=== PATIENT | male | born 1945 | race Caucasian/White ===

== ENCOUNTER 2017-06-23 09:04 | Inpatient (IN) | payer OTHER, SELFPAY ==
[~2017-06-23] VITALS: Ht 170.2 cm; Wt 84.0 kg
[~2017-06-23 09:04] MED LIST: ACET325 PO; ALBU.083IS INH; ALBU3IS INH; ALBU90OI6 INH; ALBU90OI61 INH; ALBUIS INH; ASCO500 PO; ATEN50 PO; AZIT250 PO; Altoprev40 MG PO; B Complex #11 EACH PO; Brovana15 MCG/2 M; Brovana15 MCG/2 M INH; CALC1.25T PO; CALCAVITD PO; CENTRUM SILVER1 EAC2 PO; CENTRUM ULTRA1 EAC1 PO; CITA10S PO; CITA20 PO; CLON.5 PO; CLON1 PO; CODGUAEL PO; Coq-10100 MG PO; DELTASONE20 MG PO; DILT60 PO; DOCU100 PO; DULERA 200 MCG/13 GM INH; ERGO50000 PO; FLUSAL2505 IH; FLUSAL2505 INH; FLUSAL5005 INH; FURO20 PO; Flonase 0.05% N16 GM; GUAI600T33 PO; HYLAND LEG CRAMPS; IBUP800 PO; KRILL OIL 1,001 EAC1 PO; KRILL OIL500 MG PO; LEVFLO500 PO; LEVO750 PO; LISHYD2025 PO; LISI20 PO; LORA10 PO; LOVA40 PO; METF500 PO; OMEP20ER PO; OXYB5 PO; PANT40 PO; POTCHL10ER PO; PRED10 PO; PRED5 PO; Penlac6.6 ML TOP; Perforomis20 MCG/2 M INH; Prednisone10 MG PO; Prozac20 MG PO; QC CALCIUM 6001 EACH PO; QVAR7.3 G1 INH; SILD50TA PO; SODCHL.65S; SPIRIVA; TAMS.4ER PO; THEO300ERA PO; THEO300ERC PO; TIOT18 IH; TIOT18 INH; TOCO400 PO; TRAM50 PO; VITAMIN B; VITAMIN D-32000 UNIT PO; Ventolin Soln3 ML INH; Vitamin B Comple1 EA PO; Vitamin D2000 UNIT PO; ZESTORETIC 20-1 EAC1 PO; ZINC15 PO; Zinc PO
[2017-06-23 09:25] LABS: BASOPHILS ABSOLUTE AUTO 0.06 K/mm3 (0.00-0.23); BASOPHILS PERCENT AUTO 0 % (0-2); EOSINOPHILS ABSOLUTE AUTO 0.29 K/mm3 (0.00-0.68); EOSINOPHILS PERCENT AUTO 2 % (0-6); Hemoglobin 13.3 g/dL (13.5-17.5); IMMATURE GRAN ABSOLUTE AUTO 0.08 K/mm3 (0.00-0.10); IMMATURE GRAN PERCENT AUTO 1 % (0-1); LYMPHOCYTES ABSOLUTE AUTO 1.49 K/mm3 (0.84-5.20); LYMPHOCYTES PERCENT AUTO 9 % (21-46); MONOCYTES ABSOLUTE AUTO 1.33 K/mm3 (0.16-1.47); MONOCYTES PERCENT AUTO 8 % (4-13); Mean Corpuscular HGB 30.1 pg (26.0-34.0); Mean Corpuscular HGB Conc 30.9 g/dL (31.5-36.5); Mean Corpuscular Volume 97 fL (80-100); Mean Platelet Volume 9.8 fL (9.1-12.4); NEUTROPHILS PERCENT AUTO 80 % (41-73); Platelet Count 263 K/mm3 (150-400); RDW Coefficient Variation 12.6 % (11.7-14.2); RDW Standard Deviation 45.1 fL (35.1-46.3); Red Blood Cell Count 4.42 M/mm3 (4.30-5.90); White Blood Cell Count 16.05 K/mm3 (4.00-11.30)
[2017-06-23 09:41] LABS: PCO2 Arterial 55.5 mmHg (35-45); PO2 Arterial 87.5 mmHg (80-100); pH Blood Arterial 7.35 (7.35-7.45)
[2017-06-23 09:45] LABS: Alanine Aminotransfer (ALT/SGP 18 U/L (12-78); Albumin, Blood 3.1 g/dL (3.4-5.0); Albumin/Globulin Ratio 0.8 (0.8-1.8); Alk Phos 86 U/L (50-136); Anion Gap 6 mmol/L (6-16); Aspartate Aminotrans (AST/SGOT 15 U/L (12-37); Bilirubin, Total 0.5 mg/dL (0.1-1.0); Blood Urea Nitrogen 22 mg/dL (8-24); Bun/Creatinine Ratio 24.9 (12.0-20.0); CO2, Blood 29 mmol/L (21-32); Calcium, Blood 9.8 mg/dL (8.5-10.1); Chloride, Blood 103 mmol/L (98-108); Creatinine, Blood 0.89 mg/dL (0.60-1.20); Glomerular Filtration Rate >60 (60-); Glucose, Blood 164 mg/dL (70-99); Potassium, Blood 5.1 mmol/L (3.5-5.5); Sodium, Blood 138 mmol/L (136-145); Total Protein, Blood 7.1 g/dL (6.4-8.2); Troponin I <0.015 ng/mL (0.000-0.040)
[2017-06-23 10:24] LABS: Influenza A Negative (NEGATIVE); Influenza B Negative (NEGATIVE)
[2017-06-23 10:28] LABS: BASOPHILS ABSOLUTE AUTO 0.05 K/mm3 (0.00-0.23); BASOPHILS PERCENT AUTO 0 % (0-2); EOSINOPHILS ABSOLUTE AUTO 0.11 K/mm3 (0.00-0.68); EOSINOPHILS PERCENT AUTO 1 % (0-6); Hematocrit 39.6 % (37.0-53.0); Hemoglobin 12.4 g/dL (13.5-17.5); IMMATURE GRAN ABSOLUTE AUTO 0.08 K/mm3 (0.00-0.10); IMMATURE GRAN PERCENT AUTO 1 % (0-1); LYMPHOCYTES ABSOLUTE AUTO 0.56 K/mm3 (0.84-5.20); LYMPHOCYTES PERCENT AUTO 4 % (21-46); MONOCYTES ABSOLUTE AUTO 0.75 K/mm3 (0.16-1.47); MONOCYTES PERCENT AUTO 5 % (4-13); Mean Corpuscular HGB Conc 31.3 g/dL (31.5-36.5); Mean Corpuscular Volume 96 fL (80-100); Mean Platelet Volume 9.8 fL (9.1-12.4); NEUTROPHILS ABSOLUTE AUTO 13.99 K/mm3 (1.96-9.15); NEUTROPHILS PERCENT AUTO 90 % (41-73); Platelet Count 260 K/mm3 (150-400); RDW Coefficient Variation 12.7 % (11.7-14.2); RDW Standard Deviation 45.1 fL (35.1-46.3); Red Blood Cell Count 4.13 M/mm3 (4.30-5.90); White Blood Cell Count 15.54 K/mm3 (4.00-11.30)
[2017-06-23] MEDS ORDERED: OXYB5 PO (10:30)
[2017-06-23 10:39] LABS: Alanine Aminotransfer (ALT/SGP 16 U/L (12-78); Albumin/Globulin Ratio 0.8 (0.8-1.8); Alk Phos 81 U/L (50-136); Anion Gap 5 mmol/L (6-16); Aspartate Aminotrans (AST/SGOT 14 U/L (12-37); Bilirubin, Total 0.5 mg/dL (0.1-1.0); Blood Urea Nitrogen 23 mg/dL (8-24); Bun/Creatinine Ratio 26.2 (12.0-20.0); CO2, Blood 31 mmol/L (21-32); Calcium, Blood 9.5 mg/dL (8.5-10.1); Chloride, Blood 103 mmol/L (98-108); Creatinine, Blood 0.88 mg/dL (0.60-1.20); Globulin, Blood 3.7 g/dL (2.2-4.0); Glomerular Filtration Rate >60 (60-); Glucose, Blood 163 mg/dL (70-99); Potassium, Blood 4.7 mmol/L (3.5-5.5); Sodium, Blood 139 mmol/L (136-145); Total Protein, Blood 6.7 g/dL (6.4-8.2)
[2017-06-23 10:43] LABS: International Normalized Ratio 1.04; Prothrombin Time Results 10.8 Sec (9.7-11.5)
[2017-06-23 14:01] LABS: Source, Urine Clean Catch
[2017-06-23 14:04] LABS: Bilirubin, Urine Neg (Neg); Blood, Urine Neg (Neg); Glucose Qualitative, Urine Neg (Neg); Ketones, Urine Neg (Neg); Leukocyte Esterase, Urine Neg (Neg); Nitrite, Urine Neg (Neg); Protein, Urine 2+ (Neg); Urobilinogen, Urine NORM (Normal)
[2017-06-23 14:39] LABS: Appearance, Urine Clear (Clear); Color, Urine Yellow (P-Yellow)
[2017-06-23 14:47] LABS: White Blood Cells, Urine 0-2 /hpf (0-5)
[2017-06-23 14:48] LABS: Bacteria Rare /hpf; Red Blood Cells, Urine 0-2 /hpf (0-2); Squamous Epithelial Cells Rare /hpf (Few)
[2017-06-24 04:02] LABS: BASOPHILS ABSOLUTE AUTO 0.02 K/mm3 (0.00-0.23); BASOPHILS PERCENT AUTO 0 % (0-2); EOSINOPHILS PERCENT AUTO 0 % (0-6); Hemoglobin 11.6 g/dL (13.5-17.5); IMMATURE GRAN ABSOLUTE AUTO 0.12 K/mm3 (0.00-0.10); IMMATURE GRAN PERCENT AUTO 1 % (0-1); LYMPHOCYTES ABSOLUTE AUTO 0.59 K/mm3 (0.84-5.20); LYMPHOCYTES PERCENT AUTO 3 % (21-46); MONOCYTES ABSOLUTE AUTO 0.33 K/mm3 (0.16-1.47); MONOCYTES PERCENT AUTO 2 % (4-13); Mean Corpuscular HGB 30.4 pg (26.0-34.0); Mean Corpuscular HGB Conc 31.4 g/dL (31.5-36.5); Mean Corpuscular Volume 97 fL (80-100); Mean Platelet Volume 10.1 fL (9.1-12.4); NEUTROPHILS ABSOLUTE AUTO 16.64 K/mm3 (1.96-9.15); NEUTROPHILS PERCENT AUTO 94 % (41-73); Platelet Count 268 K/mm3 (150-400); RDW Coefficient Variation 12.9 % (11.7-14.2); RDW Standard Deviation 45.5 fL (35.1-46.3); Red Blood Cell Count 3.82 M/mm3 (4.30-5.90)
[2017-06-24 04:26] LABS: Anion Gap 6 mmol/L (6-16); Blood Urea Nitrogen 28 mg/dL (8-24); Bun/Creatinine Ratio 29.8 (12.0-20.0); CO2, Blood 27 mmol/L (21-32); Calcium, Blood 8.8 mg/dL (8.5-10.1); Chloride, Blood 107 mmol/L (98-108); Creatinine, Blood 0.94 mg/dL (0.60-1.20); Glomerular Filtration Rate >60 (60-); Glucose, Blood 161 mg/dL (70-99); Potassium, Blood 4.4 mmol/L (3.5-5.5); Sodium, Blood 140 mmol/L (136-145)
[2017-06-25 05:11] LABS: BASOPHILS ABSOLUTE AUTO 0.01 K/mm3 (0.00-0.23); BASOPHILS PERCENT AUTO 0 % (0-2); EOSINOPHILS PERCENT AUTO 0 % (0-6); Hematocrit 33.3 % (37.0-53.0); Hemoglobin 10.4 g/dL (13.5-17.5); IMMATURE GRAN ABSOLUTE AUTO 0.12 K/mm3 (0.00-0.10); IMMATURE GRAN PERCENT AUTO 1 % (0-1); LYMPHOCYTES ABSOLUTE AUTO 0.68 K/mm3 (0.84-5.20); LYMPHOCYTES PERCENT AUTO 4 % (21-46); MONOCYTES PERCENT AUTO 3 % (4-13); Mean Corpuscular HGB 29.7 pg (26.0-34.0); Mean Corpuscular HGB Conc 31.2 g/dL (31.5-36.5); Mean Corpuscular Volume 95 fL (80-100); Mean Platelet Volume 9.8 fL (9.1-12.4); NEUTROPHILS ABSOLUTE AUTO 17.82 K/mm3 (1.96-9.15); NEUTROPHILS PERCENT AUTO 93 % (41-73); Platelet Count 295 K/mm3 (150-400); RDW Coefficient Variation 12.8 % (11.7-14.2); RDW Standard Deviation 44.2 fL (35.1-46.3); White Blood Cell Count 19.13 K/mm3 (4.00-11.30)
[2017-06-25] MEDS ORDERED: Advair Hfa 230-12 GM (13:50)
[2017-06-25] MEDS ORDERED: ALBU3IS INH (13:52)
[2017-06-25] MEDS ORDERED: LEVO750 PO (13:54)
[2017-06-25] MEDS ORDERED: CEFP200 PO (13:55)
[2017-06-25] MEDS ORDERED: CLARITIN10 MG PO (13:57)
[2017-06-25] MEDS ORDERED: Ciclopirox15 GM TOP (13:58)
== END 2017-06-25 15:23 | disposition home or self-care (01) | DRG 871 ==
LOC: ER 09:04 → PCU 10:36
PROVIDERS: Emergency Medicine; Family Medicine
DX: A41.9 Sepsis, unspecified organism (principal); J96.21 Acute and chronic respiratory failure with hypoxia; J18.9 Pneumonia, unspecified organism; J96.22 Acute and chronic respiratory failure with hypercapnia; J44.0 Chronic obstructive pulmonary disease with (acute) lower respiratory infection; E11.9 Type 2 diabetes mellitus without complications; R65.20 Severe sepsis without septic shock; I10 Essential (primary) hypertension; E78.00 Pure hypercholesterolemia, unspecified; M85.80 Other specified disorders of bone density and structure, unspecified site; F32.9 Major depressive disorder, single episode, unspecified; G47.00 Insomnia, unspecified; E66.9 Obesity, unspecified; Z68.31 Body mass index [BMI] 31.0-31.9, adult; Z99.81 Dependence on supplemental oxygen; Z88.0 Allergy status to penicillin; Z87.891 Personal history of nicotine dependence; Z85.828 Personal history of other malignant neoplasm of skin; Z79.84 Long term (current) use of oral hypoglycemic drugs; Z79.51 Long term (current) use of inhaled steroids; Z79.52 Long term (current) use of systemic steroids; Z79.899 Other long term (current) drug therapy
CPT/HCPCS: 36415; 36600; 71045; 71046; 80048; 80053; 81001; 82803; 82947; 83036; 83605; 83880; 84145; 84484; 85025; 85610; 85730; 87040; 87804; 93005; 93010; 94640; 94644; 94660; 94762; 96361; 96365; 96375; 99285; J0696; J1650; J1956; J2060; J2930; J3370; J7030; J7050; J7605

== ENCOUNTER 2017-07-08 21:06 | Inpatient (IN) | payer OTHER ==
[~2017-07-08] VITALS: Ht 170.2 cm; Wt 78.2 kg
[~2017-07-08 21:06] MED LIST changes: +Advair Hfa 230-12 GM; +CEFP200 PO; +CLARITIN10 MG PO; +Ciclopirox15 GM TOP
[2017-07-08 21:23] LABS: PO2 Arterial 133 mmHg (80-100)
[2017-07-08 21:24] LABS: PCO2 Arterial 88.7 mmHg (35-45)
[2017-07-08 21:25] LABS: Calcium, Ionized (POC) 1.33 mmol/L (1.10-1.46); Chloride (POC) 97 mmol/L (98-108); Creatinine (POC) 1.7 mg/dL (0.8-1.3); Glucose (ISTAT POC) 135 mg/dL (70-99); Potassium (POC) 4.9 mmol/L (3.5-5.5); Sodium (POC) 136 mmol/L (135-148); Total CO2 (POC) 36 mmol/L (21-32)
[2017-07-08 21:33] LABS: BASOPHILS ABSOLUTE AUTO 0.02 K/mm3 (0.00-0.23); BASOPHILS PERCENT AUTO 0 % (0-2); EOSINOPHILS ABSOLUTE AUTO 0.19 K/mm3 (0.00-0.68); EOSINOPHILS PERCENT AUTO 2 % (0-6); Hematocrit 44.4 % (37.0-53.0); Hemoglobin 13.4 g/dL (13.5-17.5); IMMATURE GRAN ABSOLUTE AUTO 0.06 K/mm3 (0.00-0.10); IMMATURE GRAN PERCENT AUTO 1 % (0-1); LYMPHOCYTES ABSOLUTE AUTO 0.81 K/mm3 (0.84-5.20); LYMPHOCYTES PERCENT AUTO 8 % (21-46); MONOCYTES ABSOLUTE AUTO 0.94 K/mm3 (0.16-1.47); MONOCYTES PERCENT AUTO 9 % (4-13); Mean Corpuscular HGB 29.3 pg (26.0-34.0); Mean Corpuscular HGB Conc 30.2 g/dL (31.5-36.5); Mean Corpuscular Volume 97 fL (80-100); Mean Platelet Volume 9.8 fL (9.1-12.4); NEUTROPHILS ABSOLUTE AUTO 8.62 K/mm3 (1.96-9.15); NEUTROPHILS PERCENT AUTO 81 % (41-73); Platelet Count 292 K/mm3 (150-400); RDW Coefficient Variation 13.9 % (11.7-14.2); RDW Standard Deviation 49.4 fL (35.1-46.3); Red Blood Cell Count 4.57 M/mm3 (4.30-5.90); White Blood Cell Count 10.64 K/mm3 (4.00-11.30)
[2017-07-08 21:44] LABS: Albumin, Blood 2.6 g/dL (3.4-5.0); Albumin/Globulin Ratio 0.6 (0.8-1.8); Bilirubin, Total 0.3 mg/dL (0.1-1.0); Bun/Creatinine Ratio 34.9 (12.0-20.0); Calcium, Blood 10.3 mg/dL (8.5-10.1); Creatinine, Blood 1.52 mg/dL (0.60-1.20); Globulin, Blood 4.3 g/dL (2.2-4.0); Total Protein, Blood 6.9 g/dL (6.4-8.2)
[2017-07-08 21:52] LABS: Troponin I 0.496 ng/mL (0.000-0.040)
[2017-07-08 22:28] LABS: pH Blood Venous 7.24 (7.34-7.37)
[2017-07-08 22:29] LABS: Base Excess Venous 8.1 mmol/L; Bicarbonate Venous 28.6 mmol/L (24.0-30.0); PCO2 Venous 83.6 mmHg (38-42); PO2 Venous 37.9 mmHg (38-42)
[2017-07-09] MEDS ORDERED: PRED5 PO (01:24)
[2017-07-09] MEDS ORDERED: IBUP800 PO (01:26)
[2017-07-09 01:54] LABS: Source, Urine Catheter
[2017-07-09 01:56] LABS: Bilirubin, Urine Neg (Neg); Blood, Urine Neg (Neg); Glucose Qualitative, Urine Neg (Neg); Ketones, Urine Neg (Neg); Leukocyte Esterase, Urine Neg (Neg); Nitrite, Urine Neg (Neg); Protein, Urine 1+ (Neg); Specific Gravity, Urine 1.015 (1.003-1.022); Urobilinogen, Urine NORM (Normal)
[2017-07-09 01:59] LABS: Appearance, Urine Clear (Clear); Color, Urine Yellow (P-Yellow)
[2017-07-09 03:44] LABS: Influenza A Negative (NEGATIVE); Influenza B Negative (NEGATIVE)
[2017-07-09 03:58] LABS: BASOPHILS ABSOLUTE AUTO 0.02 K/mm3 (0.00-0.23); BASOPHILS PERCENT AUTO 0 % (0-2); EOSINOPHILS ABSOLUTE AUTO 0.02 K/mm3 (0.00-0.68); EOSINOPHILS PERCENT AUTO 0 % (0-6); Hematocrit 39.8 % (37.0-53.0); Hemoglobin 11.9 g/dL (13.5-17.5); IMMATURE GRAN ABSOLUTE AUTO 0.05 K/mm3 (0.00-0.10); IMMATURE GRAN PERCENT AUTO 1 % (0-1); LYMPHOCYTES PERCENT AUTO 2 % (21-46); MONOCYTES ABSOLUTE AUTO 0.11 K/mm3 (0.16-1.47); MONOCYTES PERCENT AUTO 1 % (4-13); Mean Corpuscular HGB 29.3 pg (26.0-34.0); Mean Corpuscular HGB Conc 29.9 g/dL (31.5-36.5); Mean Corpuscular Volume 98 fL (80-100); Mean Platelet Volume 9.5 fL (9.1-12.4); NEUTROPHILS ABSOLUTE AUTO 8.55 K/mm3 (1.96-9.15); NEUTROPHILS PERCENT AUTO 96 % (41-73); Platelet Count 252 K/mm3 (150-400); RDW Standard Deviation 50.2 fL (35.1-46.3); Red Blood Cell Count 4.06 M/mm3 (4.30-5.90); White Blood Cell Count 8.95 K/mm3 (4.00-11.30)
[2017-07-09 04:21] LABS: Anion Gap 5 mmol/L (6-16); Blood Urea Nitrogen 50 mg/dL (8-24); Bun/Creatinine Ratio 40.3 (12.0-20.0); CO2, Blood 32 mmol/L (21-32); Calcium, Blood 10.4 mg/dL (8.5-10.1); Chloride, Blood 99 mmol/L (98-108); Creatinine, Blood 1.24 mg/dL (0.60-1.20); Glomerular Filtration Rate >60 (60-); Glucose, Blood 150 mg/dL (70-99); Potassium, Blood 5.5 mmol/L (3.5-5.5); Sodium, Blood 136 mmol/L (136-145)
[2017-07-09 04:38] LABS: Troponin I 0.476 ng/mL (0.000-0.040)
[2017-07-09 05:33] LABS: PO2 Arterial 81.6 mmHg (80-100)
[2017-07-09 05:34] LABS: PCO2 Arterial 73.6 mmHg (35-45); pH Blood Arterial 7.27 (7.35-7.45)
[2017-07-09 09:23] LABS: PO2 Arterial 70.6 mmHg (80-100)
[2017-07-09 09:24] LABS: PCO2 Arterial 71.1 mmHg (35-45); pH Blood Arterial 7.29 (7.35-7.45)
[2017-07-10 05:16] LABS: BASOPHILS ABSOLUTE AUTO 0.01 K/mm3 (0.00-0.23); BASOPHILS PERCENT AUTO 0 % (0-2); EOSINOPHILS PERCENT AUTO 0 % (0-6); Hematocrit 34.8 % (37.0-53.0); Hemoglobin 10.5 g/dL (13.5-17.5); IMMATURE GRAN ABSOLUTE AUTO 0.04 K/mm3 (0.00-0.10); IMMATURE GRAN PERCENT AUTO 1 % (0-1); LYMPHOCYTES ABSOLUTE AUTO 0.35 K/mm3 (0.84-5.20); LYMPHOCYTES PERCENT AUTO 4 % (21-46); MONOCYTES ABSOLUTE AUTO 0.36 K/mm3 (0.16-1.47); MONOCYTES PERCENT AUTO 4 % (4-13); Mean Corpuscular HGB 28.8 pg (26.0-34.0); Mean Corpuscular HGB Conc 30.2 g/dL (31.5-36.5); Mean Corpuscular Volume 96 fL (80-100); Mean Platelet Volume 9.8 fL (9.1-12.4); NEUTROPHILS ABSOLUTE AUTO 8.12 K/mm3 (1.96-9.15); NEUTROPHILS PERCENT AUTO 91 % (41-73); Platelet Count 264 K/mm3 (150-400); RDW Coefficient Variation 13.7 % (11.7-14.2); RDW Standard Deviation 48.1 fL (35.1-46.3); Red Blood Cell Count 3.64 M/mm3 (4.30-5.90); White Blood Cell Count 8.88 K/mm3 (4.00-11.30)
[2017-07-10 05:29] LABS: Anion Gap 3 mmol/L (6-16); Blood Urea Nitrogen 46 mg/dL (8-24); Bun/Creatinine Ratio 46.2 (12.0-20.0); CO2, Blood 34 mmol/L (21-32); Calcium, Blood 10.3 mg/dL (8.5-10.1); Chloride, Blood 102 mmol/L (98-108); Glomerular Filtration Rate >60 (60-); Glucose, Blood 146 mg/dL (70-99); Magnesium, Blood 1.8 mg/dL (1.6-2.4); Phosphorus, Blood 2.6 mg/dL (2.5-4.9); Potassium, Blood 5.2 mmol/L (3.5-5.5); Sodium, Blood 139 mmol/L (136-145)
[2017-07-10 05:54] LABS: PCO2 Arterial 58.3 mmHg (35-45); PO2 Arterial 63.3 mmHg (80-100); pH Blood Arterial 7.42 (7.35-7.45)
[2017-07-11 04:39] LABS: BASOPHILS ABSOLUTE AUTO 0.01 K/mm3 (0.00-0.23); BASOPHILS PERCENT AUTO 0 % (0-2); EOSINOPHILS PERCENT AUTO 0 % (0-6); Hematocrit 35.8 % (37.0-53.0); Hemoglobin 10.9 g/dL (13.5-17.5); IMMATURE GRAN ABSOLUTE AUTO 0.06 K/mm3 (0.00-0.10); IMMATURE GRAN PERCENT AUTO 1 % (0-1); LYMPHOCYTES ABSOLUTE AUTO 0.46 K/mm3 (0.84-5.20); LYMPHOCYTES PERCENT AUTO 4 % (21-46); MONOCYTES ABSOLUTE AUTO 0.45 K/mm3 (0.16-1.47); MONOCYTES PERCENT AUTO 4 % (4-13); Mean Corpuscular HGB 29.1 pg (26.0-34.0); Mean Corpuscular HGB Conc 30.4 g/dL (31.5-36.5); Mean Corpuscular Volume 96 fL (80-100); Mean Platelet Volume 9.5 fL (9.1-12.4); NEUTROPHILS ABSOLUTE AUTO 11.12 K/mm3 (1.96-9.15); NEUTROPHILS PERCENT AUTO 92 % (41-73); Platelet Count 262 K/mm3 (150-400); RDW Coefficient Variation 13.8 % (11.7-14.2); RDW Standard Deviation 48.1 fL (35.1-46.3); Red Blood Cell Count 3.75 M/mm3 (4.30-5.90)
[2017-07-11 04:40] LABS: PCO2 Arterial 61.5 mmHg (35-45); PO2 Arterial 74.8 mmHg (80-100); pH Blood Arterial 7.41 (7.35-7.45)
[2017-07-11 05:03] LABS: Anion Gap 3 mmol/L (6-16); Blood Urea Nitrogen 41 mg/dL (8-24); Bun/Creatinine Ratio 45.2 (12.0-20.0); CO2, Blood 35 mmol/L (21-32); Calcium, Blood 10.3 mg/dL (8.5-10.1); Chloride, Blood 100 mmol/L (98-108); Creatinine, Blood 0.91 mg/dL (0.60-1.20); Glomerular Filtration Rate >60 (60-); Glucose, Blood 149 mg/dL (70-99); Potassium, Blood 4.9 mmol/L (3.5-5.5); Sodium, Blood 138 mmol/L (136-145)
[2017-07-11 10:54] LABS: Vancomycin, Trough 22.3 ug/mL (5.0-10.0)
[2017-07-12] MEDS ORDERED: LEVO750 PO (15:48)
[2017-07-12] MEDS ORDERED: DULERA 200 MCG/13 GM INH (15:48)
[2017-07-12] MEDS ORDERED: PRED20 PO (15:51)
== END 2017-07-12 17:24 | disposition home health service (06) | DRG 193 ==
LOC: ER 21:06 → PCU 23:24 → ICUW 23:24 → PCU 07-10 13:50
PROVIDERS: Emergency Medicine; Hospitalist; Internal Medicine; Internal Medicine Critical Care Medicine
PROC: 5A09357 Assistance with Respiratory Ventilation, Less than 24 Consecutive Hours, Continuous Positive Airway Pressure (ICD-10-PCS; principal; 2017-07-08)
DX: J18.9 Pneumonia, unspecified organism (principal); J96.22 Acute and chronic respiratory failure with hypercapnia; J96.21 Acute and chronic respiratory failure with hypoxia; N17.9 Acute kidney failure, unspecified; G93.41 Metabolic encephalopathy; J44.0 Chronic obstructive pulmonary disease with (acute) lower respiratory infection; J44.1 Chronic obstructive pulmonary disease with (acute) exacerbation; I10 Essential (primary) hypertension; G47.33 Obstructive sleep apnea (adult) (pediatric); M85.80 Other specified disorders of bone density and structure, unspecified site; E09.9 Drug or chemical induced diabetes mellitus without complications; T38.0X5A Adverse effect of glucocorticoids and synthetic analogues, initial encounter
CPT/HCPCS: 36415; 36600; 51702; 71045; 80047; 80048; 80053; 80202; 82803; 82947; 83605; 83735; 83880; 84100; 84145; 84484; 85014; 85025; 85379; 87040; 87070; 87205; 87804; 93005; 93010; 93306; 94640; 94644; 94660; 94667; 94762; 96365; 96366; 96367; 96368; 96375; 97116; 97161; 97530; 98960; 99285; G8978; G8979; J0456; J0692; J1650; J1940; J1956; J2920; J2930; J3010; J3370; J7030; J7050

== ENCOUNTER 2019-02-09 14:23 | Emergency (ER) | payer OTHER ==
[~2019-02-09] VITALS: Ht 170.2 cm; Wt 80.7 kg
[~2019-02-09 14:23] MED LIST changes: +PRED20 PO
[2019-02-09 15:33] LABS: BASOPHILS ABSOLUTE AUTO 0.04 K/mm3 (0.00-0.23); BASOPHILS PERCENT AUTO 0 % (0-2); EOSINOPHILS PERCENT AUTO 1 % (0-6); Hematocrit 42.3 % (37.0-53.0); Hemoglobin 12.7 g/dL (13.5-17.5); IMMATURE GRAN ABSOLUTE AUTO 0.04 K/mm3 (0.00-0.10); IMMATURE GRAN PERCENT AUTO 0 % (0-1); LYMPHOCYTES ABSOLUTE AUTO 0.79 K/mm3 (0.84-5.20); LYMPHOCYTES PERCENT AUTO 6 % (21-46); MONOCYTES ABSOLUTE AUTO 1.31 K/mm3 (0.16-1.47); MONOCYTES PERCENT AUTO 10 % (4-13); Mean Corpuscular HGB 31.1 pg (26.0-34.0); Mean Corpuscular Volume 103 fL (80-100); Mean Platelet Volume 10.1 fL (9.1-12.4); NEUTROPHILS ABSOLUTE AUTO 11.03 K/mm3 (1.96-9.15); NEUTROPHILS PERCENT AUTO 83 % (41-73); Platelet Count 193 K/mm3 (150-400); RDW Coefficient Variation 12.7 % (11.7-14.2); RDW Standard Deviation 48.7 fL (35.1-46.3); Red Blood Cell Count 4.09 M/mm3 (4.30-5.90); White Blood Cell Count 13.31 K/mm3 (4.00-11.30)
[2019-02-09 15:52] LABS: Albumin, Blood 3.1 g/dL (3.4-5.0); Albumin/Globulin Ratio 0.9 (0.8-1.8); Bilirubin, Total 0.6 mg/dL (0.1-1.0); Bun/Creatinine Ratio 32.3 (12.0-20.0); Creatinine, Blood 1.33 mg/dL (0.60-1.20); Globulin, Blood 3.3 g/dL (2.2-4.0); Potassium, Blood 5.4 mmol/L (3.5-5.5); Total Protein, Blood 6.4 g/dL (6.4-8.2)
[2019-02-09] MEDS ORDERED: Ultram50 MG PO (17:50)
== END 2019-02-09 18:28 | disposition home or self-care (01) ==
LOC: ER 14:23
PROVIDERS: Emergency Medicine
DX: S32.592A Other specified fracture of left pubis, initial encounter for closed fracture (principal); J44.9 Chronic obstructive pulmonary disease, unspecified; J96.12 Chronic respiratory failure with hypercapnia; I10 Essential (primary) hypertension; E11.9 Type 2 diabetes mellitus without complications; F32.9 Major depressive disorder, single episode, unspecified; E66.9 Obesity, unspecified; Z99.81 Dependence on supplemental oxygen; Z99.89 Dependence on other enabling machines and devices; Z87.891 Personal history of nicotine dependence; Z68.27 Body mass index [BMI] 27.0-27.9, adult; W19.XXXA Unspecified fall, initial encounter
CPT/HCPCS: 36415; 72192; 73502; 80053; 85025; 96374; 96375; 99284-25; J1170; J1885

== ENCOUNTER 2019-07-02 21:10 | Inpatient (IN) | payer OTHER ==
[~2019-07-02] VITALS: Ht 170.2 cm; Wt 75.3 kg
[~2019-07-02 21:10] MED LIST changes: +ALBU2.5V5 INH; -ALBUIS INH; +Ultram50 MG PO
[2019-07-02 21:38] LABS: Base Excess Venous 5.8 mmol/L; Bicarbonate Venous 27.2 mmol/L (24.0-30.0); PCO2 Venous 81.2 mmHg (38-42); PO2 Venous 96.9 mmHg (38-42); pH Blood Venous 7.22 (7.34-7.37)
[2019-07-02 21:40] LABS: BASOPHILS ABSOLUTE AUTO 0.03 K/mm3 (0.00-0.23); BASOPHILS PERCENT AUTO 0 % (0-2); EOSINOPHILS ABSOLUTE AUTO 0.08 K/mm3 (0.00-0.68); EOSINOPHILS PERCENT AUTO 1 % (0-6); Hematocrit 44.1 % (37.0-53.0); Hemoglobin 12.9 g/dL (13.5-17.5); IMMATURE GRAN ABSOLUTE AUTO 0.04 K/mm3 (0.00-0.10); IMMATURE GRAN PERCENT AUTO 0 % (0-1); LYMPHOCYTES ABSOLUTE AUTO 1.47 K/mm3 (0.84-5.20); LYMPHOCYTES PERCENT AUTO 12 % (21-46); MONOCYTES ABSOLUTE AUTO 1.21 K/mm3 (0.16-1.47); MONOCYTES PERCENT AUTO 10 % (4-13); Mean Corpuscular HGB 29.5 pg (26.0-34.0); Mean Corpuscular HGB Conc 29.3 g/dL (31.5-36.5); Mean Corpuscular Volume 101 fL (80-100); Mean Platelet Volume 9.7 fL (9.1-12.4); NEUTROPHILS ABSOLUTE AUTO 9.71 K/mm3 (1.96-9.15); NEUTROPHILS PERCENT AUTO 78 % (41-73); Platelet Count 197 K/mm3 (150-400); RDW Coefficient Variation 12.7 % (11.7-14.2); RDW Standard Deviation 47.6 fL (35.1-46.3); Red Blood Cell Count 4.37 M/mm3 (4.30-5.90); White Blood Cell Count 12.54 K/mm3 (4.00-11.30)
[2019-07-02] MEDS ORDERED: QVAR REDIHALE10.6 GM (21:50)
[2019-07-02] MEDS ORDERED: Brovana15 MCG/2 M INH (21:51)
[2019-07-02] MEDS ORDERED: Flonase 0.05% N16 GM (21:51)
[2019-07-02] MEDS ORDERED: CENTRUM SILVER1 EAC2 PO (21:52)
[2019-07-02] MEDS ORDERED: VITAMIN D33000 UNIT PO (21:54)
[2019-07-02] MEDS ORDERED: ASCO500 PO (21:54)
[2019-07-02] MEDS ORDERED: ZINC50 M2 PO (21:55)
[2019-07-02] MEDS ORDERED: Loratadine10 MG PO (21:55)
[2019-07-02 22:00] LABS: Alanine Aminotransfer (ALT/SGP 17 U/L (12-78); Albumin, Blood 3.2 g/dL (3.4-5.0); Albumin/Globulin Ratio 0.9 (0.8-1.8); Alk Phos 92 U/L (50-136); Anion Gap 5 mmol/L (6-16); Aspartate Aminotrans (AST/SGOT 17 U/L (12-37); Bilirubin, Total 0.6 mg/dL (0.1-1.0); Blood Urea Nitrogen 28 mg/dL (8-24); Bun/Creatinine Ratio 23.1 (12.0-20.0); CO2, Blood 34 mmol/L (21-32); Calcium, Blood 9.5 mg/dL (8.5-10.1); Chloride, Blood 100 mmol/L (98-108); Creatinine, Blood 1.21 mg/dL (0.60-1.20); Globulin, Blood 3.5 g/dL (2.2-4.0); Glomerular Filtration Rate >60 (60-); Glucose, Blood 205 mg/dL (70-99); Potassium, Blood 5.5 mmol/L (3.5-5.5); Sodium, Blood 139 mmol/L (136-145); Total Protein, Blood 6.7 g/dL (6.4-8.2); Troponin I <0.015 ng/mL (0.000-0.040)
[2019-07-03 01:02] LABS: Adenovirus Not Detected (NOT DETECT); Bordetella pertussis Not Detected (NOT DETECT); Chlamydophila pneumoniae Not Detected (NOT DETECT); Coronavirus 229E Not Detected (NOT DETECT); Coronavirus HKU1 Not Detected (NOT DETECT); Coronavirus NL63 Not Detected (NOT DETECT); Coronavirus OC43 Not Detected (NOT DETECT); Human Metapneumovirus Not Detected (NOT DETECT); Human Rhinovirus/Enterovirus Not Detected (NOT DETECT); Influenza A/2009-H1 Not Detected (NOT DETECT); Influenza A/H1 Not Detected (NOT DETECT); Influenza A/H3 Not Detected (NOT DETECT); Influenza B Not Detected (NOT DETECT); Mycoplasma pneumoniae Not Detected (NOT DETECT); Parainfluenza Virus 1 Not Detected (NOT DETECT); Parainfluenza Virus 2 Not Detected (NOT DETECT); Parainfluenza Virus 3 Not Detected (NOT DETECT); Parainfluenza Virus 4 Not Detected (NOT DETECT); Respiratory Syncytial Virus Not Detected (NOT DETECT)
--- NOTE | 2019-07-03 03:00 | NUR ---
PT ARRIVED TO ICU 11 FROM ER VIA GURNEY. ACCOMPANIED BY INDUSTRIAL MAINTENANCE MANAGER. PT IS AWAKE ON 6L NC. PT IS EXTREMELY TANACROSS AND DOES NOT HAVE HIS HEARING AIDS WITH HIM. SPO2 88%. CONVINCED PT TO WEAR BIPAP AGAIN. HAVING TO WRITE NOTES TO PT ON PAPER FOR HIM TO UNDERSTAND CONVERSATION. PT IS R/O FOR COVID-19 AND IS AIRBORNE PRECAUTIONS WHILE ON BIPAP. OROPHARYNGEAL, NASOPHARYNGEAL, AND SPUTUM SENT TO LAB WITH RECEPTION SPECIALIST FOR CLEARING MEASURES. SPUTUM IS BRIGHT YELLOW AND THICK. LS DIM T/O. CAME IN [place] BUT IS GOING HOME TO GET SOME REST. STATES THAT PT IS NORMALLY VERY ANXIOUS WITHOUT HER AT BEDSIDE. EDUCATED ON VISITOR PRECAUTIONS FOR R/O COVID-19 AND INSTRUCTED ON HANDWASHING/HAND FOAM.
[2019-07-03 03:35] LABS: BASOPHILS ABSOLUTE AUTO 0.02 K/mm3 (0.00-0.23); BASOPHILS PERCENT AUTO 0 % (0-2); EOSINOPHILS PERCENT AUTO 0 % (0-6); Hemoglobin 12.3 g/dL (13.5-17.5); IMMATURE GRAN PERCENT AUTO 1 % (0-1); LYMPHOCYTES ABSOLUTE AUTO 0.58 K/mm3 (0.84-5.20); LYMPHOCYTES PERCENT AUTO 4 % (21-46); MONOCYTES ABSOLUTE AUTO 0.22 K/mm3 (0.16-1.47); MONOCYTES PERCENT AUTO 2 % (4-13); Mean Corpuscular HGB 30.4 pg (26.0-34.0); Mean Corpuscular Volume 102 fL (80-100); Mean Platelet Volume 9.6 fL (9.1-12.4); NEUTROPHILS ABSOLUTE AUTO 12.82 K/mm3 (1.96-9.15); NEUTROPHILS PERCENT AUTO 93 % (41-73); Platelet Count 161 K/mm3 (150-400); RDW Coefficient Variation 12.8 % (11.7-14.2); RDW Standard Deviation 47.8 fL (35.1-46.3); Red Blood Cell Count 4.04 M/mm3 (4.30-5.90); White Blood Cell Count 13.74 K/mm3 (4.00-11.30)
[2019-07-03 03:41] LABS: Anion Gap 0 mmol/L (6-16); Blood Urea Nitrogen 29 mg/dL (8-24); Bun/Creatinine Ratio 26.1 (12.0-20.0); CO2, Blood 33 mmol/L (21-32); Calcium, Blood 8.7 mg/dL (8.5-10.1); Chloride, Blood 107 mmol/L (98-108); Creatinine, Blood 1.11 mg/dL (0.60-1.20); Glomerular Filtration Rate >60 (60-); Glucose, Blood 155 mg/dL (70-99); Potassium, Blood 5.8 mmol/L (3.5-5.5); Sodium, Blood 140 mmol/L (136-145)
[2019-07-03 04:00] LABS: Source, Urine Voided
[2019-07-03 04:09] LABS: Bilirubin, Urine Neg (Neg); Blood, Urine Neg (Neg); Glucose Qualitative, Urine Neg (Neg); Ketones, Urine Neg (Neg); Leukocyte Esterase, Urine Neg (Neg); Nitrite, Urine Neg (Neg); Protein, Urine 3+ (Neg); Urobilinogen, Urine NORM (Normal)
[2019-07-03 04:15] LABS: Appearance, Urine Hazy (Clear); Color, Urine Yellow (P-Yellow)
[2019-07-03 04:16] LABS: Amorphous Light (0-Heavy); Bacteria Rare /hpf; Hyaline Casts 50-100 /lpf (0-2); Mucus Light (0-Heavy); Red Blood Cells, Urine Not Seen /hpf (0-2); Squamous Epithelial Cells Few /hpf (Few); White Blood Cells, Urine Rare /hpf (0-5)
[2019-07-03 04:22] LABS: Test Name COVID-19
[2019-07-03 05:36] LABS: PCO2 Arterial 78.9 mmHg (35-45); PO2 Arterial 51.7 mmHg (80-100); pH Blood Arterial 7.24 (7.35-7.45)
--- NOTE | 2019-07-03 06:36 | NUR ---
SUMMARY PT RESTING WITH BIPAP ON. PT HAS BEEN ABLE TO SLEEP SINCE LEFT THIS AM. SLEEPING ON BIPAP. WAKES EASILY AND IS ABLE TO READ NOTES THAT STAFF WRITES SINCE PT IS UNABLE TO HEAR WITHOUT HEARING AIDS. SPOKE WITH DR. SCHREIBER ABOUT ABG RESULTS. NO NEW ORDERS. R/O COVID-19. BP HAS BEEN STABLE SINCE ARRIVING TO ICU. NO SIGN OF DISTRESS THIS AM.
--- NOTE | 2019-07-03 08:03 | NUR ---
ASSUMED CARE PATIENT IN ISOLATION IN NEGATIVE PRESSURE ROOM UNTIL COVID RULED OUT. WAS ON BIPAP 16/6 50% FIO2, BREAK GIVEN FROM BIPAP D/T PAIN AT BRIDGE OF NOSE. NC TITRATED FROM 9L TO 3L. TEACHING ABOUT NEED TO KEEP O2 LOWER WHILE AT REST D/T CLIMBING CO2 LEVELS. PATIENT IS DEAF, BUT ABLE TO COMMUNICATE WITH HIM VIA HAND SIGNALS AND NOTES. HE DEMONSTRATES UNDERSTANDING OF HIS CO2 LEVEL AND THE NEED TO KEEP IT LOWER THAN IT IS. CURRENTLY RECEIVING A BREATHING TX, TOLERATING WELL. PULLED UP IN BED, ASSISTED HIM WITH USE OF URINAL AND POSITIONED HIS BED TO ALLOW HIM TO SEE OUT THE WINDOW. HE IS AFEBRILE THIS MORNING AND TOLERATING LESS O2 THAN HE DOES AT HOME.
[2019-07-03] MEDS ORDERED: ATOR20 PO (10:23)
[2019-07-03] MEDS ORDERED: LONHALA MA25 MCG/11 INH (11:05)
[2019-07-03 11:55] LABS: Anion Gap -1 mmol/L (6-16); Blood Urea Nitrogen 31 mg/dL (8-24); Bun/Creatinine Ratio 31.9 (12.0-20.0); CO2, Blood 33 mmol/L (21-32); Calcium, Blood 8.9 mg/dL (8.5-10.1); Chloride, Blood 105 mmol/L (98-108); Creatinine, Blood 0.97 mg/dL (0.60-1.20); Glomerular Filtration Rate >60 (60-); Glucose, Blood 210 mg/dL (70-99); Phosphorus, Blood 3.2 mg/dL (2.5-4.9); Sodium, Blood 137 mmol/L (136-145)
[2019-07-03 12:15] LABS: Base Excess Venous 4.9 mmol/L; Bicarbonate Venous 25.9 mmol/L (24.0-30.0); PO2 Venous 37.9 mmHg (38-42); pH Blood Venous 7.21 (7.34-7.37)
--- NOTE | 2019-07-03 13:57 | NUR ---
BIPAP PLACED BACK ON AFTER VBG RESULTS. PATIENT FINISHED HIS LUNCH, WAS IN RECLINER FOR LUNCH, STOOD X2 FOR URINAL ON 4L NC. LUNGS DIMINSHED T/O. AT BEDSIDE. PT NOW HAS HIS HEARING AIDS AND IS QUITE TALKATIVE.
--- NOTE | 2019-07-03 14:09 | NUR ---
MD VISIT DR. WYNN IN WITH PATIENT
--- NOTE | 2019-07-03 17:52 | NUR ---
PATIENT REMAINED OFF BIPAP AFTER ASKING FOR A BREAK AT 0730. O2 TITRATED UP TO 4L WITH ACTIVITY AND DOWN TO 3L WHILE AT REST. VOIDS SMALL AMOUNTS IN URINAL (100-200 CC) WITH ASSISTANCE TO STAND AT SIDE OF BED. BIPAP PLACED BACK ON AFTER VBG RESULTS IN. NS CONTINUES AT 75 ML/HR. ENCOURAGED TO SLEEP WITH BIPAP IN PLACE AND DINNER HELD PATIENT SAYS HE LIKES HIS FOOD TO COOL. OT WORKED SHORTLY WITH PATIENT, BUT HE WAS NOT ABLE TO TOLERATE THE ACTIVITY D/T DYSPNEA. PT WAS DELAYED UNTIL TOMORROW FOR SAME. PATIENT NOW HAS HEARING AID IN AND IS ABLE TO PARTICIPATE IN CONVERSATION. PATIENT REQUESTS ALBUTEROL INHALER LIKE HE USES AT HOME WHENEVER HE IS SOB. HIS S.O. REPORTS HE DOES NOT FOLLOW THE Q4 HR PRN FOR SOB, BUT USES IT WHENEVER HE FEELS SOB. PATIENT REPORTS HE FEELS ANXIETY AT HOME BECAUSE HIS HEART RACES. HE HAS BEEN ADVISED THAT HE IS GETTING HIS MEDICINE WITH THE BREATHING TX FOR RT. WILL REPORT TO ONCOMING RN. THIS AM BECAUSE HE REPORTS HE DOES NOT TAKE THAT AT HOME.
--- NOTE | 2019-07-03 18:40 | NUR ---
PATIENT PLACED ON 4L NC TO SIT IN CHAIR TO EAT DINNER. FAN PROVIDED FOR COMFORT.
--- NOTE | 2019-07-03 21:15 | NUR ---
PT BACK TO BED FROM CHAIR. USED BEDSIDE COMMODE WHILE UP. PT IS VERY TALKATIVE AND ANXIOUS. DOES NOT ALLOW STAFF TIME TO ANSWER QUESTIONS OR EXPLAIN PROCEDURES BEFORE HE INTERUPTS FOR THE NEXT QUESTION OR REQUEST. PT GETS ANXIOUS IF RN TRIES TO LEAVE THE ROOM. PLACED PT ON BIPAP 16/6 FIO2 40%. AIRBORNE PRECAUTIONS WHILE ON BIPAP DUE TO R/O COVID-19. PT TOOK HIS HEARING AID OUT FOR THE NIGHT AND NOW TO COMMUNICATE STAFF MUST WRITE ON PAPER. SEE ASSESSMENT.
--- NOTE | 2019-07-03 23:58 | NUR ---
PT IS EXTREMELY ANXIOUS. GAVE CLONAZEPAM. TRIED TO REASSURE PT THAT HE IS DOING WELL AND THAT HE SHOULD CONTINUE WITH BIPAP MUCH POSSIBLE. PT IS ALSO ANXIOUS WHEN RN LEAVES THE ROOM BECAUSE HE THINKS HE IS NOT BEING MONITORED. EDUCATED THAT THERE ARE CENTRAL MONITORS THAT ARE CONSTANTLY BEING WATCHED. PT SAT AT SIDE OF BED AND CLEARED NOSE OUT, THEN USED URINAL AND BACK TO BED WITH BIPAP ON.
[2019-07-04 04:05] LABS: BASOPHILS ABSOLUTE AUTO 0.01 K/mm3 (0.00-0.23); BASOPHILS PERCENT AUTO 0 % (0-2); EOSINOPHILS PERCENT AUTO 0 % (0-6); Hematocrit 36.4 % (37.0-53.0); Hemoglobin 11.1 g/dL (13.5-17.5); IMMATURE GRAN ABSOLUTE AUTO 0.05 K/mm3 (0.00-0.10); IMMATURE GRAN PERCENT AUTO 0 % (0-1); LYMPHOCYTES ABSOLUTE AUTO 0.63 K/mm3 (0.84-5.20); LYMPHOCYTES PERCENT AUTO 4 % (21-46); MONOCYTES PERCENT AUTO 3 % (4-13); Mean Corpuscular HGB 30.8 pg (26.0-34.0); Mean Corpuscular HGB Conc 30.5 g/dL (31.5-36.5); Mean Corpuscular Volume 101 fL (80-100); Mean Platelet Volume 9.9 fL (9.1-12.4); NEUTROPHILS ABSOLUTE AUTO 13.65 K/mm3 (1.96-9.15); NEUTROPHILS PERCENT AUTO 92 % (41-73); Platelet Count 166 K/mm3 (150-400); RDW Coefficient Variation 12.8 % (11.7-14.2); RDW Standard Deviation 47.4 fL (35.1-46.3); White Blood Cell Count 14.84 K/mm3 (4.00-11.30)
[2019-07-04 04:19] LABS: Albumin, Blood 2.7 g/dL (3.4-5.0); Anion Gap 3 mmol/L (6-16); Blood Urea Nitrogen 34 mg/dL (8-24); Bun/Creatinine Ratio 34.6 (12.0-20.0); CO2, Blood 31 mmol/L (21-32); Calcium, Blood 9.1 mg/dL (8.5-10.1); Chloride, Blood 106 mmol/L (98-108); Creatinine, Blood 0.98 mg/dL (0.60-1.20); Glomerular Filtration Rate >60 (60-); Glucose, Blood 119 mg/dL (70-99); Potassium, Blood 5.4 mmol/L (3.5-5.5); Sodium, Blood 140 mmol/L (136-145)
--- NOTE | 2019-07-04 06:41 | NUR ---
SUMMARY PT WORE BIPAP MOST OF THE NIGHT. ANXIETY IMPROVED AFTER RECEIVING CLONAZEPAM. PT WAS ABLE TO SLEEP FOR A LITTLE BIT THIS AM. NO CRITICAL EVENTS DURING THE NIGHT. CALL LIGHT IN REACH.
--- NOTE | 2019-07-04 09:00 | NUR ---
CARE ASSUMED REPORT RECEIVED, CARE ASSUMED AT 0700 FROM MARLENE MCCAIN. PT ASLEEP ON BIPAP DURING BEDSIDE REPORT. CALLS FOR USE OF URINAL. URINAL PROVIDED. PT TO NASAL CANNULA FOR BREAKFAST. PT ANXIOUS, SOMEWHAT LABILE. MAKES REQUESTS FASTER THAN STAFF CAN MEET NEEDS, AND TALKS OVER STAFF WHEN ATTEMPTING TO EDUCATE. ENCOURAGED PT THAT OUR GOAL IS ALWAYS TO SUPPORT HIM, EDUCATE AND HELP HIM BUT THAT WE HAVE TO WORK A TEAM TO LISTEN TO EACHOTHER IN ORDER TO BE SUCCESSFUL. PT AGREEABLE, BUT ALSO FORGETFUL AND CONTINUES TO TALK OVER STAFF AND BE MINIMALLY RECEPTIVE TO EDUCATION. PT HARD OF HEARING, ENCOURAGED PT TO PUT HEARING AIDS IN. HEARING AIDS, GLASSES AND DENTURES PUT IN BY PATIENT. PT ABLE TO TOLERATE PO MEDS AND BREAKFAST, THOUGH IS SHORT OF BREATH WITH EXERTION. RECOVERS WITHIN A FEW MINUTES OF RESTING. BP/HEART RATE STABLE. PT AFEBRILE. PT EDUCATED ON PROPER USE OF CALL LIGHT. AGREEABLE TO CALL FOR URGENT NEEDS ONLY, OTHERWISE WE WILL BUNDLE CARE ON STAFF ROUNDING. PT LEFT EATING BREAKFAST WITH CALL LIGHT IN REACH.
--- NOTE | 2019-07-04 11:11 | NUR ---
PHYSICAL THERAPY PT ASLEEP WHEN PHYSICAL THERAPY CAME BY. WOKE PT UP AND PT REQUESTING TO CONTINUE TO TAKE A NAP. PT INFORMED THAT WORKING WITH PHYSICAL THERAPY NEEDS TO HAPPEN FOR IMPROVEMENT OF HIS HEALTH, AND PT AGREEABLE. SEE PHYSICAL THERAPY NOTE.
--- NOTE | 2019-07-04 12:20 | NUR ---
DR. TIANNA WYNN TO BEDSIDE FOR ASSESSMENT. ORDER FOR REPEAT VBG, ENCOURAGE BIPAP USE AND OK FOR TRANSFER TO PCU.
[2019-07-04 12:36] LABS: PO2 Venous 35.6 mmHg (38-42); pH Blood Venous 7.32 (7.34-7.37)
[2019-07-04 12:37] LABS: Base Excess Venous 7.3 mmol/L; Bicarbonate Venous 28.7 mmol/L (24.0-30.0)
--- NOTE | 2019-07-04 13:19 | NUR ---
RESPIRATORY STATUS PT OFF BIPAP THIS MORNING. PT HAD BREAKFAST AND UP WITH PT/OT. RR ELEVATED, BUT O2 SATS STABLE. RR IMPROVE WITH REST. PT REFUSING LUNCH AT THIS TIME HE STATES HE IS NOT HUNGRY. PT ATTEMPTS TO REFUSE BIPAP BUT AGREEABLE AFTER EDUCATION. BIPAP PLACED, LIGHTS DIMMED, CALL LIGHT IN REACH. SEE RECENT VBG RESULTS.
--- NOTE | 2019-07-04 15:16 | NUR ---
MEDICATION RECONCILIATION CALL PLACED TO PT'S PHARMACY, [facility] IN [facility], AND SPOKE WITH MANAGER CATH LAB WHO STATED SHE WILL FAX OVER MEDICATION LIST FOR COMPLETION OF MEDICATION RECONCILATION.
--- NOTE | 2019-07-04 18:19 | NUR ---
COVID-19 NEGATIVE NOTIFIED BY ANGIE IN LAB THAT PATIENT'S SPUTUM RESULT FOR COVID-19 IS NEGATIVE.
--- NOTE | 2019-07-04 19:30 | NUR ---
SUMMARY PT HAS CONTINUED TO SOMEWHAT ANXIOUS, BUT CALM AND RESPECTFUL WHEN NEEDS ARE MET AND EDUCATION IS PROVIDED. PT HAS ONLY AGREED TO WEAR BIPAP TWICE TODAY FOR LESS THAN AN HOUR EACH TIME. REQUIRED ENCOURAGEMENT TO EAT FOR ALL THREE MEALS. DID NOT WANT TO GET OUT OF BED, BUT DID WITH ENCOURAGEMENT AND SAID HE FELT MUCH BETTER AFTERWARDS. PT HAS HAD TWO GOOD BOWEL MOVEMENTS. GOOD URINE OUTPUT. USES URINAL, CALLS APPROPRIATELY. STANDBY ASSIST WITH WALKER. PT DOES BECOME SHORT OF BREATH AND DESATURATE INTO MID 80'S, BUT RECOVERS WITHOUT BIPAP. CHANGED TO PCU STATUS PER DR. WYNN. PT'S IN AND OUT THROUGHOUT DAY, ENCOURAGED HER TO ASSIST PT WITH NEEDS WHEN ABLE AND SHE IS AGREEABLE.
--- NOTE | 2019-07-04 19:33 | NUR ---
BEDSIDE REPORT TO MARLENE VILLEGAS TO ASSUME CARE
--- NOTE | 2019-07-04 21:15 | NUR ---
ASSUMED CARE ASSUMED CARE OF PATIENT AT THIS TIME. PT CONTINUES TO BE SITTING UP IN CHAIR. DENIES C/O PAIN/DISCOMFORT OR NAUSEA. DYSPNEA NOTED WITH EXERTION/TALKING. OCCASIONAL COUGH. 7L HFNC. APPEARS SLIGHTLY ANXIOUS. MONITOR SHOWS SR-ST, RATE 90-100s. VOIDING WITHOUT DIFFICULTY.
[2019-07-05 05:40] LABS: Base Excess Venous 8.3 mmol/L; Bicarbonate Venous 31.4 mmol/L (24.0-30.0); PCO2 Venous 41.2 mmHg (38-42); PO2 Venous 122 mmHg (38-42); pH Blood Venous 7.49 (7.34-7.37)
[2019-07-05 06:17] LABS: BASOPHILS ABSOLUTE AUTO 0.01 K/mm3 (0.00-0.23); BASOPHILS PERCENT AUTO 0 % (0-2); EOSINOPHILS PERCENT AUTO 0 % (0-6); Hematocrit 38.7 % (37.0-53.0); Hemoglobin 11.6 g/dL (13.5-17.5); IMMATURE GRAN ABSOLUTE AUTO 0.08 K/mm3 (0.00-0.10); IMMATURE GRAN PERCENT AUTO 1 % (0-1); LYMPHOCYTES ABSOLUTE AUTO 0.65 K/mm3 (0.84-5.20); LYMPHOCYTES PERCENT AUTO 5 % (21-46); MONOCYTES ABSOLUTE AUTO 0.45 K/mm3 (0.16-1.47); MONOCYTES PERCENT AUTO 3 % (4-13); Mean Corpuscular HGB 29.7 pg (26.0-34.0); Mean Corpuscular Volume 99 fL (80-100); Mean Platelet Volume 10.2 fL (9.1-12.4); NEUTROPHILS ABSOLUTE AUTO 12.56 K/mm3 (1.96-9.15); NEUTROPHILS PERCENT AUTO 91 % (41-73); Platelet Count 213 K/mm3 (150-400); RDW Coefficient Variation 12.9 % (11.7-14.2); RDW Standard Deviation 46.5 fL (35.1-46.3); Red Blood Cell Count 3.91 M/mm3 (4.30-5.90); White Blood Cell Count 13.75 K/mm3 (4.00-11.30)
[2019-07-05 06:31] LABS: Albumin, Blood 2.8 g/dL (3.4-5.0); Anion Gap 4 mmol/L (6-16); Blood Urea Nitrogen 31 mg/dL (8-24); Bun/Creatinine Ratio 35.6 (12.0-20.0); CO2, Blood 33 mmol/L (21-32); Calcium, Blood 9.8 mg/dL (8.5-10.1); Chloride, Blood 102 mmol/L (98-108); Creatinine, Blood 0.87 mg/dL (0.60-1.20); Glomerular Filtration Rate >60 (60-); Glucose, Blood 129 mg/dL (70-99); Phosphorus, Blood 3.3 mg/dL (2.5-4.9); Sodium, Blood 139 mmol/L (136-145)
--- NOTE | 2019-07-05 06:47 | NUR ---
SHIFT SUMMARY NO ACUTE CHANGES. SLEPT INTERMITTENTLY. REMAINED ON BIPAP 16/6, BUR 16, FIO2 40% WHILE ASLEEP. NOW ON 6L HFNC. CONTINUES WITH DYSPNEA WITH EXERTION. RESPIRATIONS EVEN AND UNLABORED AT REST. VSS T/O NOC. DENIES C/O PAIN OR DISCOMFORT. TAKING PO WITHOUT DIFFICULTY. WILL REPORT TO DAY SHIFT RN WHEN AVAILABLE.
--- NOTE | 2019-07-05 08:00 | NUR ---
CARE ASSUMED REPORT RECEIVED, CARE ASSUMED FROM MARLENE CARTER AT 0700. PT ALERT, ORIENTED AND PLEASANT. REPORTS FEELING ANXIOUS BECAUSE HE WANTS TO GO HOME. ASSISTED PT TO BEDSIDE COMMODE AND THEN TO CHAIR FOR BREAKFAST. SETUP ASSIST FOR BREAKFAST. PT REQUESTING ANXIETY MEDICATION, AGREEABLE TO REASSESS AFTER BREAKFAST AND TAKE AT THAT TIME IF STILL FEELING ANXIOUS. 02 SAT 90'S ON 7 LPM NASAL CANNULA. BP AND HEART RATE STABLE. PT AFEBRILE. PT LEFT WITH CALL LIGHT IN REACH.
--- NOTE | 2019-07-05 08:45 | NUR ---
STATUS CHANGE PER RESPIRATORY CARE, PT SWITCHED TO M-SERIES BIPAP. ON STANDBY AT BEDSIDE. PT CONTINUES ON 7 LPM NASAL CANNULA AND TOLERATING WELL. UPDATED DR. WYNN. NEW ORDER FOR TRANSFER TO MEDICAL FLOOR. DISCONTINUE TELEMETRY. CONTINUOUS PULSE OXIMETRY ORDER PLACED.
--- NOTE | 2019-07-05 10:00 | NUR ---
UPDATE PT BACK TO BED, PLACED ON M-SERIES BIPAP SET UP BY RESPIRATORY THERAPIST FOR NAP. CALL LIGHT IN REACH. DECLINES FURTHER NEEDS.
--- NOTE | 2019-07-05 10:30 | NUR ---
UPDATED PT'S CALLED FOR UPDATE. REQUESTING MOST RECENT VBG RESULT. PROVIDED. UPDATED THAT PT IS NOW MEDICAL FLOOR STATUS AND WILL BE TRANSFERRING TO MEDICAL FLOOR WHEN A BED BECOMES AVAILABLE.
--- NOTE | 2019-07-05 11:37 | NUR ---
ANXIETY PT PRESSES CALL LIGHT, WHEN STAFF ATTEMPT TO ENTER ROOM PT BEGINS YELLING AND WAVING STAFF OVER. PT SAYS, "THIS IS NOT A BIPAP" ATTEMPT TO EDUCATE PATIENT ON DIFFERENCE BETWEEN THE BIPAP HE WAS INITIALLY WEARING AND THE M-SERIES BIPAP AND PT NOT WILLING TO LISTEN TO EDUCATION. PT ACCUSING VARIOUS STAFF OF NOT KNOWING THEIR JOB. PT GIVEN TIME TO VENT AND THEN BOUNDARIES RE-ESTABLISHED THAT PATIENT IS BEING EDUCATED THOROUGHLY BUT IS CHOOSING TO TALK OVER AND NOT LISTEN. PT APOLOGETIC, AGREEABLE. SAYS HE STILL DOES NOT AGREE THAT THE M-SERIES BIPAP IS A BIPAP. TOLD HIM RESPIRATORY CARE WOULD BE BY TO ASSURE HIM, BUT THAT RIGHT NOW IS DOING GREAT ON NASAL CANNULA. CALL PLACED TO DR. DUNCAN FOR PT'S HOME ANXIETY MEDICATION. SEE ORDERS.
--- NOTE | 2019-07-05 11:53 | NUR ---
UPDATE SINCE PREVIOUS NOTE, PT CALLS REQUESTING BEDSIDE COMMODE. AGREEABLE TO WAIT UNTIL ANXIETY MEDICATION IS GIVEN. UPON ENTERING ROOM WITH ANXIETY MEDICATION AND TO ASSIST PATIENT TO BATHROOM, PT YELLING TO RESPIRATORY CARE ABOUT STAFF NOT ATTENDING TO HIS NEEDS REGARDING HIS BIPAP, ANXIETY AND NEEDING TO USE THE BATHROOM. ATTEMPT TO TELL PATIENT THAT I AM HERE TO HELP HIM TO THE BATHROOM AND PT BEGINS YELLING LOUDER. PT GIVEN TIME TO EXPRESS NEEDS, PROVIDED WITH REASSURANCE BY RESPIRATORY THERAPIST. LAURA, RT EXPLAINED BIPAP TO PATIENT AND PT AGREEABLE. ASSISTED PT TO BEDSIDE COMMODE. ANXIETY MEDICATION GIVEN. BREATHING TREATMENT SET UP PER RT. PT CALM, AGREES TO LUNCH TIME CBG.
--- NOTE | 2019-07-05 14:30 | NUR ---
UPDATE SINCE PREVIOUS NOTE, PT HAS BEEN CALM, COOPERATIVE. ATE LUNCH. BACK TO BED WITH STANDBY ASSIST. POSITIONED AND SET UP REQUESTED. REQUESTS TO TAKE NAP. SINCE THEN, PT RESTING QUIETLY ON 7 LPM NASAL CANNULA. REPOSITIONING SELF IN BED. CALL LIGHT WITHIN REACH.
--- NOTE | 2019-07-05 14:53 | NUR ---
TRANSFER NOTIFIED BY FLUMER THAT PT TO TRANSFER TO ROOM 337. CALL PLACED TO RN TO ASSUME CARE, WILL CALL BACK WHEN AVAILABLE.
--- NOTE | 2019-07-05 15:41 | NUR ---
REPORT TO MARLENE CAMPO TO ASSUME CARE ON MEDICAL FLOOR
--- NOTE | 2019-07-05 16:05 | NUR ---
CONTINUOUS PULSE OX NOTIFIED RT VANESA THAT PT TO TRANSFER TO ROOM 337 AND NEEDS CONTINUOUS PULSE OX. WILL TAKE M-SERIES BIPAP WITH PATIENT TO MEDICAL FLOOR.
--- NOTE | 2019-07-05 16:20 | NUR ---
TRANSFER PT UPDATED ON PLAN AND AGREEABLE. VITALS STABLE. PT CONTINUES ON 7 LPM NASAL CANNULA AND TOLERATING WITH 02 SAT MID 90'S. DOES DESATURATE WITH ACTIVITY BUT RECOVERS QUICKLY. ROBY TRENT TO ROOM TO PACK UP PATIENT AND TAKE TO MEDICAL FLOOR.
--- NOTE | 2019-07-05 16:30 | NUR ---
PT ARRIVED TO THE MEDICAL FLOOR FROM THE ICU VIA WHEELCHAIR, A/OX3, PLEASANT AND COOPERATIVE, THE PT IS UP WITH STAND BY ASSIST, THE PT WAS ORIENTED TO THE ROOM LAYOUT AND CALL SYSTEM, THE PT HAS O2 ON @ 8L/MIN VIA HIGH ARSALAN NC, PT IS ON CONTINUOUS BIOX, CALL LIGHT IN REACH, PT DENIED ANY PAIN AT THIS TIME, WILL CONTINUE TO MONITOR AND ASSESS FOR CHANGES
[2019-07-06] MEDS ORDERED: Prozac20 MG PO (02:38)
[2019-07-06] MEDS ORDERED: CLON1 PO (02:38)
[2019-07-06] MEDS ORDERED: QVAR REDIHALE10.6 GM INH (02:39)
--- NOTE | 2019-07-06 03:24 | NUR ---
SHIFT SUMMARY ASSUMED CARE OF PT AT 1900. PT IS A/O X4, DENIES N/T IN EXTREMITIES, PT IS VERY HARD OF HEARING. HEART SOUNDS IRREGULAR, DENIES CP. LUNG SOUNDS TIGHT AND DIMINISHED WITH SLIGHT WHEEZES, PT CURRENTLY ON 5L O2, TITRATED DOWN FROM 8L, PT WORE HIS CPAP ALL NIGHT WITH O2, PT DENIES SOB AT THIS TIME BUT STATED THAT HE CAN GET SOB WHEN HE IS DOING ACTIVITES. PT USES URINAL AT BEDSIDE. PT SLEPT MOST OF THE NIGHT, NO ACUTE CHANGES NOTED. PT STATES THAT HE HOPES TO RETURN HOME TODAY WITH HIS . CALL LIGHT IN REACH, BED IN LOWEST POSTION, [facility] U[facility]IL DAYSHIFT NURSE ARRIVES.
--- NOTE | 2019-07-06 11:23 | NUR ---
Initial Visit: Consult of palliative care for end stage disease. Pt has medical history of oxygen dependent COPD, uses bipap, sleep apnea, diabetes, depression, anxiety, insomnia, GERD. Pt is sitting up in chair, he is alert and oriented, in a bright mood. He is happy with his life partner, April, at his side. Easy conversation between the couple, April is attentive to the pt. He reports he is thankful for her care of him. She handles finances, chores, shopping, and all the household managment due to his disability with the extent of his lung disease. April is his alternate decision maker if he is unable to communicate wishes. There is a POLST on file and this is reviewed. It indicates no CPR, but intubation is okay. Reviewed lung disease and possibility of requiring intubation. The purpose of intubation is reviewed, care during intubation and after intubation. Pt reports that his quality of life is satisfying as long as he is able to talk. He never wants a trach, does not want a PEG tube. Other forms of artifical nutrition are okay in the short term. Discussed withdrawal of life support if pt is unable to be weaned off of a vent. Pt discusses his wishes openly and with humor. He states that April is aware of his wishes if his condition gets worse. He reports compliance with treatments in the home setting. POLST reviewed, pt does not wish to change it at this time. Pt is going home today and is happy to be going home. Will remain available if needed. Pt is at end stage disease. High risk for readmission and recurrent hospital visits for support of end stage disease.
[2019-07-06] MEDS ORDERED: LEVO750 PO (13:12)
[2019-07-06] MEDS ORDERED: Prednisone10 MG (13:16)
[2019-07-06] MEDS ORDERED: GUAI600T33 PO (13:21)
--- NOTE | 2019-07-06 16:52 | NUR ---
1550 PT DISHCARGED HOME WITH HH VIA W/C TRANSPORT WITH O2. NO IV. D/C PAPERS REVIEWED WITH PT AND SPOUSE, COPY PROVIDED. PT ON 4L O2 NC, BASELINE O2 USE. NO NEW CHANGES OR CONCERNS.
== END 2019-07-06 15:50 | disposition home health service (06) | DRG 871 ==
LOC: ER 21:10 → ICUW 23:52 → ER 07-03 02:29 → ICUW 07-03 02:29 → MEDS 07-05 16:21 → ICUW 07-05 16:21 → ENPENDDIS 07-06 11:35 → MEDS 07-06 15:50
PROVIDERS: Emergency Medicine; Family Medicine; Internal Medicine Pulmonary Disease; ADMIT Internal Medicine
DX: A41.9 Sepsis, unspecified organism (principal); J96.01 Acute respiratory failure with hypoxia; J96.02 Acute respiratory failure with hypercapnia; J18.9 Pneumonia, unspecified organism; G92 Toxic encephalopathy; J44.0 Chronic obstructive pulmonary disease with (acute) lower respiratory infection; E87.2 Acidosis; N17.9 Acute kidney failure, unspecified; J44.1 Chronic obstructive pulmonary disease with (acute) exacerbation; R65.20 Severe sepsis without septic shock; G47.30 Sleep apnea, unspecified; F41.9 Anxiety disorder, unspecified; E11.9 Type 2 diabetes mellitus without complications; I10 Essential (primary) hypertension; I95.9 Hypotension, unspecified; F32.9 Major depressive disorder, single episode, unspecified; N40.0 Benign prostatic hyperplasia without lower urinary tract symptoms; K21.9 Gastro-esophageal reflux disease without esophagitis; E87.5 Hyperkalemia; Z66 Do not resuscitate; Z99.81 Dependence on supplemental oxygen; Z87.891 Personal history of nicotine dependence
CPT/HCPCS: 0099U; 36415; 36600; 70450; 71045; 71250; 80048; 80053; 80069; 81001; 82803; 82947; 83605; 83880; 84145; 84484; 85025; 87040; 93005; 93010; 94640; 94644; 94660; 94760; 94762; 96361; 96365; 96366; 96375; 97162; 97166; 97530; 99285-25; A9270-GY; J1650; J1956; J2920; J7030; J7512; U0001

== ENCOUNTER 2019-09-13 22:19 | Inpatient (IN) | payer OTHER ==
[~2019-09-13] VITALS: Ht 180.3 cm; Wt 74.6 kg
[~2019-09-13 22:19] MED LIST changes: +ATOR20 PO; +Deltasone 10 mg10 MG PO; +LONHALA MA25 MCG/11 INH; +Loratadine10 MG PO; +QVAR REDIHALE10.6 GM; +QVAR REDIHALE10.6 GM INH; +VITAMIN D33000 UNIT PO; +ZINC50 M2 PO
[2019-09-13 22:39] LABS: PCO2 Arterial 69.6 mmHg (35-45); PO2 Arterial 284 mmHg (80-100)
[2019-09-13 22:40] LABS: pH Blood Arterial 7.25 (7.35-7.45)
[2019-09-13 22:56] LABS: BASOPHILS ABSOLUTE AUTO 0.02 K/mm3 (0.00-0.23); BASOPHILS PERCENT AUTO 0 % (0-2); EOSINOPHILS ABSOLUTE AUTO 0.06 K/mm3 (0.00-0.68); EOSINOPHILS PERCENT AUTO 1 % (0-6); Hematocrit 42.1 % (37.0-53.0); Hemoglobin 12.6 g/dL (13.5-17.5); IMMATURE GRAN ABSOLUTE AUTO 0.05 K/mm3 (0.00-0.10); IMMATURE GRAN PERCENT AUTO 1 % (0-1); LYMPHOCYTES ABSOLUTE AUTO 0.88 K/mm3 (0.84-5.20); LYMPHOCYTES PERCENT AUTO 8 % (21-46); MONOCYTES ABSOLUTE AUTO 0.93 K/mm3 (0.16-1.47); MONOCYTES PERCENT AUTO 8 % (4-13); Mean Corpuscular HGB 29.9 pg (26.0-34.0); Mean Corpuscular HGB Conc 29.9 g/dL (31.5-36.5); Mean Corpuscular Volume 100 fL (80-100); Mean Platelet Volume 10.6 fL (9.1-12.4); NEUTROPHILS ABSOLUTE AUTO 9.07 K/mm3 (1.96-9.15); NEUTROPHILS PERCENT AUTO 82 % (41-73); Platelet Count 185 K/mm3 (150-400); RDW Coefficient Variation 13.4 % (11.7-14.2); RDW Standard Deviation 49.4 fL (35.1-46.3); Red Blood Cell Count 4.21 M/mm3 (4.30-5.90); White Blood Cell Count 11.01 K/mm3 (4.00-11.30)
[2019-09-13 23:18] LABS: Alanine Aminotransfer (ALT/SGP 18 U/L (12-78); Albumin, Blood 3.2 g/dL (3.4-5.0); Albumin/Globulin Ratio 0.9 (0.8-1.8); Alk Phos 95 U/L (50-136); Anion Gap 4 mmol/L (6-16); Aspartate Aminotrans (AST/SGOT 42 U/L (12-37); Bilirubin, Total 0.8 mg/dL (0.1-1.0); Blood Urea Nitrogen 25 mg/dL (8-24); Bun/Creatinine Ratio 22.3 (12.0-20.0); CO2, Blood 33 mmol/L (21-32); Chloride, Blood 101 mmol/L (98-108); Creatinine, Blood 1.12 mg/dL (0.60-1.20); Globulin, Blood 3.5 g/dL (2.2-4.0); Glomerular Filtration Rate >60 (60-); Glucose, Blood 187 mg/dL (70-99); Potassium, Blood 5.8 mmol/L (3.5-5.5); Sodium, Blood 138 mmol/L (136-145); Total Protein, Blood 6.7 g/dL (6.4-8.2); Troponin I 0.017 ng/mL (0.000-0.040)
[2019-09-14 02:10] LABS: U Amphetamine Screen Not Detected; U Barbituate Screen Not Detected; U Benzodiazapine Screen Not Detected; U Cannabinoids Screen Not Detected; U Cocaine Screen Not Detected; U Methadone Screen Not Detected; U Methamphetamine Screen Not Detected; U Opiates Screen Not Detected; U Phencyclidine Screen Not Detected
[2019-09-14 02:11] LABS: U Buprenorphine Screen Not Detected; U Oxycodone Screen Not Detected; U Propoxyphene Screen Not Detected
[2019-09-14 04:13] LABS: Anion Gap 4 mmol/L (6-16); Blood Urea Nitrogen 23 mg/dL (8-24); Bun/Creatinine Ratio 20.5 (12.0-20.0); CO2, Blood 29 mmol/L (21-32); Calcium, Blood 8.2 mg/dL (8.5-10.1); Chloride, Blood 105 mmol/L (98-108); Creatinine, Blood 1.12 mg/dL (0.60-1.20); Glomerular Filtration Rate >60 (60-); Glucose, Blood 221 mg/dL (70-99); International Normalized Ratio 1.05; Potassium, Blood 4.4 mmol/L (3.5-5.5); Prothrombin Time Results 11.2 Sec (9.7-11.5); Sodium, Blood 138 mmol/L (136-145)
--- NOTE | 2019-09-14 04:44 | NUR ---
PT TO ICU 11 FROM ER. PT ARRIVED INTUBATED AC 450/16/5/75% ETT 7.0 23 CM AT TEETH . SEDATED ON PROPOFOL 10 MCG/KG/MIN. LEVOPHED INFUSING INTO LAC PERIPHERAL IV AT 25 MCG/MIN. PT WITHDRAWS FROM PAINFUL STIMULUS (STERNAL RUB), FAILS TO FOLLOW COMMANDS. LUNG SOUNDS COARSE WITH DIM BASES, SCANT AMOUNT OF THICK WHITE SPUTUM FROM ETT. OGT TO LIS, DARK BILE OUTPUT. PT SINUS TOMASA, HR 49-55. TEMP DECKER PATENT AND DRAINING YELLOW URINE. 0300: DR. SALINAS AT BEDSIDE INSERTING LEFT IJ. PT HAS SPONTANEOUS MUSCLE SPASMS. WITHDRAWS FROM PAIN RELATED TO CENTRAL LINE PLACEMENT. MEDICATED WITH 1 MG VERSED. PT CURRENTLY ON 20 MCG/KG/MIN PROPOFOL, LEVOPHED @ 10 MCG/MIN, NS @ 75ML/HR FOR 1.5L SEE FULL ADMISSION ASSESSMENT
[2019-09-14 05:04] LABS: PCO2 Arterial 63.2 mmHg (35-45); PO2 Arterial 57.2 mmHg (80-100); pH Blood Arterial 7.28 (7.35-7.45)
--- NOTE | 2019-09-14 07:15 | NUR ---
REC'D REPORT FROM MARLENE WHITE AND AM NOW ASSUMING CARE OF THIS PT. ALL VITAL GTTS CHECKED AT THIS TIME.
--- NOTE | 2019-09-14 10:01 | NUR ---
Echocardiogram completed.
--- NOTE | 2019-09-14 10:05 | NUR ---
DR CUBA AT THE BEDSIDE TO ASSESS PT. UPDATED WITH PT'S STATUS.
[2019-09-14 12:19] LABS: BASOPHILS ABSOLUTE AUTO 0.02 K/mm3 (0.00-0.23); BASOPHILS PERCENT AUTO 0 % (0-2); EOSINOPHILS ABSOLUTE AUTO 0.08 K/mm3 (0.00-0.68); EOSINOPHILS PERCENT AUTO 1 % (0-6); Hematocrit 38.8 % (37.0-53.0); Hemoglobin 11.9 g/dL (13.5-17.5); IMMATURE GRAN ABSOLUTE AUTO 0.04 K/mm3 (0.00-0.10); IMMATURE GRAN PERCENT AUTO 0 % (0-1); LYMPHOCYTES ABSOLUTE AUTO 0.63 K/mm3 (0.84-5.20); LYMPHOCYTES PERCENT AUTO 5 % (21-46); MONOCYTES ABSOLUTE AUTO 0.63 K/mm3 (0.16-1.47); MONOCYTES PERCENT AUTO 5 % (4-13); Mean Corpuscular HGB 30.4 pg (26.0-34.0); Mean Corpuscular HGB Conc 30.7 g/dL (31.5-36.5); Mean Corpuscular Volume 99 fL (80-100); Mean Platelet Volume 10.1 fL (9.1-12.4); NEUTROPHILS ABSOLUTE AUTO 10.76 K/mm3 (1.96-9.15); NEUTROPHILS PERCENT AUTO 88 % (41-73); Platelet Count 205 K/mm3 (150-400); RDW Coefficient Variation 13.4 % (11.7-14.2); RDW Standard Deviation 48.7 fL (35.1-46.3); Red Blood Cell Count 3.91 M/mm3 (4.30-5.90); White Blood Cell Count 12.16 K/mm3 (4.00-11.30)
[2019-09-14 12:36] LABS: Alanine Aminotransfer (ALT/SGP 19 U/L (12-78); Albumin, Blood 2.8 g/dL (3.4-5.0); Albumin/Globulin Ratio 0.9 (0.8-1.8); Alk Phos 86 U/L (50-136); Anion Gap 4 mmol/L (6-16); Aspartate Aminotrans (AST/SGOT 18 U/L (12-37); Bilirubin, Total 0.6 mg/dL (0.1-1.0); Blood Urea Nitrogen 19 mg/dL (8-24); Bun/Creatinine Ratio 20.6 (12.0-20.0); CO2, Blood 31 mmol/L (21-32); Calcium, Blood 8.6 mg/dL (8.5-10.1); Chloride, Blood 105 mmol/L (98-108); Creatinine, Blood 0.92 mg/dL (0.60-1.20); Globulin, Blood 3.1 g/dL (2.2-4.0); Glomerular Filtration Rate >60 (60-); Glucose, Blood 133 mg/dL (70-99); Potassium, Blood 4.2 mmol/L (3.5-5.5); Sodium, Blood 140 mmol/L (136-145); Total Protein, Blood 5.9 g/dL (6.4-8.2)
--- NOTE | 2019-09-14 18:17 | NUR ---
SHIFT SUMMARY: PT REMAINS INTUBATED AND SEDATED ON TITRATED PROPOFOL, CURRENTLY AT 40MCG/KG/MIN. PT BECAME ALERT WITHIN 15 MINS OF SEDATION VACATION, HOWEVER, NEVER DID OPEN EYES, FOLLOW ANY COMMANDS OR ANSWER ANY SIMPLE QUESTIONS. PT INSTEAD BECAME AGITATED AND WAS ATTEMPTING TO PULL ETT OUT. LUNGS ARE AT TIMES COARSE, BUT CLEARS WITH SX'ING. OTHERWISE LUNGS ARE DIMINISHED IN THE BILATERAL BASES, RT>LT WITH OCCASIONAL WHEEZE/FAINT CRACKLES HEARD IN THE RT BASES. SP02 LOW 90% RANGE ON UNCHANGED VENT SETTINGS: AC-20/TV-450/P-5/FI02-55%. HR REMAINS SB WITH 1ST DEGREE AVB T/O SHIFT IN THE 50'S RANGE. ABD IS SLIGHTLY DISTENDED WITH FACIAL GRIMACE SEEN WITH PALPATION OF THE LUQ. PT HAS OGT AND WAS STARTED ON VHP TUBE FEEDINGS AT TRICKLE RATE OF 10ML/HR. NO BM THIS SHIFT. PT DRAINING CLEAR, YELLOW URINE PER DECKER TO GRAVITY IN LARGE AMTS W/DIURESIS.
--- NOTE | 2019-09-14 19:20 | NUR ---
REPORTED OFF TO MARLENE WHITE WHOM IS NOW ASSUMING CARE OF THIS PT.
--- NOTE | 2019-09-14 21:03 | NUR ---
ASSUMED CARE OF PT, REPORT RCV'D FROM MARLENE CHENG. PT INTUBATED VENT SETTINGS AC 20/450/5/55%. PROPOFOL @ 50 MCG/KG/MIN FOR SEDATION. PT DISPLAYS FACIAL GRIMACE WITH NOXIOUS STIMULI, FAILS TO OPEN EYES, FOLLOW DIRECTIONS OR SHOW PURPOSEFUL MOVEMENT. HEART RHYTHM SINUS-SINUS TOMASA WITH 1 DEGREE HEART BLOCK. VITAL HIGH PROTEIN AT 10 ML/HR, GOAL RATE 45 ML WITH 30 ML Q4 H20 FLUSH. 10 ML RESIDUAL REINSTILLED. NS @ 100 ML/HR INFUSING FOR REMAINING 500 ML OF 1.5L ORDER. PT AFEBRILE, VSS. LEFT IJ CENTRAL LINE DRESSING CHANGED. SEE FULL SHIFT ASSESSMENT BILATERAL SOFT WRIST RESTRAINTS IN PLACE TO PREVENT ACCIDENTAL SELF EXTUBATION.
--- NOTE | 2019-09-14 22:17 | NUR ---
PT'S S/O ARIEL CALLED, UPDATED WITH PT'S PROGRESS AND PLAN OF CARE. ENCOURAGED HER TO CALL NEEDED FOR UPDATES.
--- NOTE | 2019-09-15 02:29 | NUR ---
PT SPONTANEOUSLY OPENING EYES, NOT TRACKING. NODDED HEAD NO ON ONE OCCASION IN RESPONSE TO LIGHT IN EYES. PT MOVED LEFT AND RIGHT HAND ON COMMAND, FAILS TO MOVE FEET.
[2019-09-15 03:23] LABS: BASOPHILS ABSOLUTE AUTO 0.01 K/mm3 (0.00-0.23); BASOPHILS PERCENT AUTO 0 % (0-2); EOSINOPHILS PERCENT AUTO 0 % (0-6); Hematocrit 35.4 % (37.0-53.0); Hemoglobin 10.8 g/dL (13.5-17.5); IMMATURE GRAN ABSOLUTE AUTO 0.04 K/mm3 (0.00-0.10); IMMATURE GRAN PERCENT AUTO 0 % (0-1); LYMPHOCYTES ABSOLUTE AUTO 0.42 K/mm3 (0.84-5.20); LYMPHOCYTES PERCENT AUTO 5 % (21-46); MONOCYTES PERCENT AUTO 2 % (4-13); Mean Corpuscular HGB 29.8 pg (26.0-34.0); Mean Corpuscular HGB Conc 30.5 g/dL (31.5-36.5); Mean Corpuscular Volume 98 fL (80-100); Mean Platelet Volume 9.8 fL (9.1-12.4); NEUTROPHILS ABSOLUTE AUTO 8.25 K/mm3 (1.96-9.15); NEUTROPHILS PERCENT AUTO 93 % (41-73); Platelet Count 179 K/mm3 (150-400); RDW Coefficient Variation 13.2 % (11.7-14.2); RDW Standard Deviation 47.1 fL (35.1-46.3); Red Blood Cell Count 3.62 M/mm3 (4.30-5.90); White Blood Cell Count 8.92 K/mm3 (4.00-11.30)
[2019-09-15 03:40] LABS: Alanine Aminotransfer (ALT/SGP 16 U/L (12-78); Albumin, Blood 3.4 g/dL (3.4-5.0); Albumin/Globulin Ratio 1.3 (0.8-1.8); Alk Phos 67 U/L (50-136); Anion Gap 6 mmol/L (6-16); Aspartate Aminotrans (AST/SGOT 14 U/L (12-37); Bilirubin, Total 0.5 mg/dL (0.1-1.0); Blood Urea Nitrogen 22 mg/dL (8-24); Bun/Creatinine Ratio 20.6 (12.0-20.0); CO2, Blood 30 mmol/L (21-32); Calcium, Blood 8.9 mg/dL (8.5-10.1); Chloride, Blood 105 mmol/L (98-108); Creatinine, Blood 1.07 mg/dL (0.60-1.20); Globulin, Blood 2.7 g/dL (2.2-4.0); Glomerular Filtration Rate >60 (60-); Glucose, Blood 219 mg/dL (70-99); Magnesium, Blood 1.5 mg/dL (1.6-2.4); Phosphorus, Blood 2.7 mg/dL (2.5-4.9); Potassium, Blood 3.5 mmol/L (3.5-5.5); Sodium, Blood 141 mmol/L (136-145); Total Protein, Blood 6.1 g/dL (6.4-8.2)
[2019-09-15 05:25] LABS: PCO2 Arterial 55.1 mmHg (35-45); PO2 Arterial 101 mmHg (80-100); pH Blood Arterial 7.29 (7.35-7.45)
--- NOTE | 2019-09-15 05:29 | NUR ---
SHIFT SUMMARY PT REMAINS INTUBATED, AC 20/450/5/50%. PROPFOL @50 MCG/KG/MIN. PT MORE RESPONSIVE OVERNIGHT. PT OPENS EYES SPONTANEOUSLY, SHAKES HEAD NO, FOLLOWS SOME COMMANDS (MOVE HANDS BILATERAL) ATTEMPTS TO REACH FOR ETT, AND PULLS HARD ON RESTRAINTS. PT EASILY AGITATED AND ATTEMPTS TO PULL AWAY FROM NURSING AND RT STAFF. SEDATION VACATION AND WEAN STARTED AT 0445, ENDED AT 0515. PT AGITATED WITH INCREASED RR AND HR BUT ABLE TO MAINTAIN SATS>90%. AROUND 0100 PTS HR INCREASED FROM 50-60'S TO 100-110'S WITH SIGNIFICANT ECTOPY NOTICED. VITAL HIGH PROTEIN AT 25 ML/HR, RESIDUALS 10,60, AND 110 REFED. PT AFEBRILE, BP WNL T/O SHIFT. 1100 ML CLEAR URINE OUTPUT FROM CATHETER. BILATERAL SOFT WRIST RESTRAINT REMAIN IN PLACE. WILL REPORT TO DAYSHIFT NURSE.
--- NOTE | 2019-09-15 06:21 | NUR ---
PT HYPOTENSIVE, TITRATED PROPOFOL DOWN TO 40 MCG/KG/MIN. FAXED LEVOPHED REQUEST TO PHARMACY, WILL START WHEN RECEIVED.
--- NOTE | 2019-09-15 07:04 | NUR ---
Received report from Billy ROSARIO. Patient is intubated and sedated. He has 7.0 ET and is 23 at teeth with vent setting AC 20, TV 450, FiO2 40% and PEEP 5.0 and sats 96%. He responds to painful stimuli. He has quad lumen central line to [facility] , dressing intact and site WNL's and is infusing Levophed at 2 mcg/min and Propofol at 40 mcg/kg/min and NS at TKO. He also has OG infusing Vital High Protien at 25 ml/hr with 30ml Q4 hr flushes will increase to goal. He has bilateral soft wrist restrainst to protect lines and tubes. He has 16 Fr. Temp moser draining to gravity and with temp 98.4.
--- NOTE | 2019-09-15 11:05 | NUR ---
Patient has remained on same vent settings until 1100 where we placed on Spon. mode 10/5 and 40% and sats low 90%'s. He has converted out of 2nd degree block. No other sign ificant changes VSS, See EMR.
--- NOTE | 2019-09-15 14:08 | NUR ---
No significant changes. He remains on Spon. 10/5 40% and sats low 90%'s. He is slightly febrile at 99.0. Reduced Levophed to 1 mcg/min and systolics 113 and HR 100's.
--- NOTE | 2019-09-15 18:15 | NUR ---
Levophed has been off approx 1 hr and systolic 118-125. He remains on Spon. mode 10/5 and 40% and sats 93%. Propofol at 40 mcg/kg/min, NS TKO. Vital High Protien at 45ml/hr and 30ml flushes. placed bilateral hearing aids in and patient knod to answers. Patient had 700ml light trang colored urine. His temp has been increaseing to 99.9.
--- NOTE | 2019-09-15 21:22 | NUR ---
ASSUMED CARE OF PT, REPORT RCV'D FROM MARLENE AGUILAR. PT INTUBATED, SPONT PS 10, SEDATED ON PROPOFOL 50 MCG/KG/MIN. PT OPENS EYES TO VERBAL STIMULUS, SQUEEZES HANDS ON COMMAND, KEENE, NODS HEAD YES/NO IN RESPONSE TO QUESTIONS. PT EASILY AGITATED AND PULLS ON RESTRAINTS AND REACHES FOR TUBE. LUNG SOUNDS DIM T/O, MODERATE AMOUNT OF THICK FERNANDEZ SPUTUM FROM ETT. BILATERAL SOFT WRIST RESTRAINTS IN PLACE. VITAL HIGH PROTEIN TUBE FEEDING AT GOAL RATE 45 ML/HR WITH 30 ML Q4 FLUSH, 100 ML RESIDUALS REFED. SEE FULL SHIFT ASSESSMENT
--- NOTE | 2019-09-16 03:12 | NUR ---
PT SATS IN LOW TO MID 80'S, TV<300. SWITCHED TO AC.
[2019-09-16 03:17] LABS: BASOPHILS ABSOLUTE AUTO 0.01 K/mm3 (0.00-0.23); BASOPHILS PERCENT AUTO 0 % (0-2); EOSINOPHILS PERCENT AUTO 0 % (0-6); Hematocrit 34.7 % (37.0-53.0); Hemoglobin 10.6 g/dL (13.5-17.5); IMMATURE GRAN PERCENT AUTO 1 % (0-1); LYMPHOCYTES ABSOLUTE AUTO 0.54 K/mm3 (0.84-5.20); LYMPHOCYTES PERCENT AUTO 3 % (21-46); MONOCYTES ABSOLUTE AUTO 0.78 K/mm3 (0.16-1.47); MONOCYTES PERCENT AUTO 5 % (4-13); Mean Corpuscular HGB Conc 30.5 g/dL (31.5-36.5); Mean Corpuscular Volume 98 fL (80-100); Mean Platelet Volume 10.1 fL (9.1-12.4); NEUTROPHILS ABSOLUTE AUTO 14.74 K/mm3 (1.96-9.15); NEUTROPHILS PERCENT AUTO 91 % (41-73); Platelet Count 221 K/mm3 (150-400); RDW Coefficient Variation 14.1 % (11.7-14.2); RDW Standard Deviation 50.5 fL (35.1-46.3); Red Blood Cell Count 3.53 M/mm3 (4.30-5.90); White Blood Cell Count 16.17 K/mm3 (4.00-11.30)
[2019-09-16 03:44] LABS: Anion Gap 4 mmol/L (6-16); Blood Urea Nitrogen 29 mg/dL (8-24); Bun/Creatinine Ratio 30.4 (12.0-20.0); CO2, Blood 32 mmol/L (21-32); Calcium, Blood 9.2 mg/dL (8.5-10.1); Chloride, Blood 106 mmol/L (98-108); Creatinine, Blood 0.95 mg/dL (0.60-1.20); Glomerular Filtration Rate >60 (60-); Glucose, Blood 170 mg/dL (70-99); Phosphorus, Blood 3.9 mg/dL (2.5-4.9); Potassium, Blood 4.2 mmol/L (3.5-5.5); Sodium, Blood 142 mmol/L (136-145); Vancomycin, Trough 16.6 ug/mL (5.0-10.0)
--- NOTE | 2019-09-16 05:31 | NUR ---
SHIFT SUMMARY PT REMAINS INTUBATED AND SEDATED. VENT SETTINGS AC 20/450/5/45% WITH SATS>90%. PROPOFOL 55 MCG/KG/MIN FOR SEDATION. PT EASILY AROUSES WHEN SEDATION TURNED DOWN, FOLLOWS COMMANDS. MODERATE AMOUNT OF THICK FERNANDEZ/WHITE SECRETIONS SUCTIONED FROM ETT. OCCASIONAL WHEEZE HEARD BILATER UPPER LOBES THAT CLEARS WITH SUCTIONING. 1600 ML CLEAR YELLOW URINARY OUTPUT. PT AFEBRILE AND VSS T/O SHIFT. LEVOPHED REMAINED ON STANDBY OVERNIGHT. TOLERATING TUBE FEEDING WELL WITH LOW RESIDUALS. WILL REPORT TO DAYSMNFT NURSE.
--- NOTE | 2019-09-16 07:32 | NUR ---
Received report from Billy ROSARIO. Patient awake in bed with eyes open , but still does not track. He is intubated and sedated with vent settings of AC 20, TV 450, FiO2 35% Peep 5.0 and sats 92%. Repostioned and stiffens up and is not wanting to be on left side when asked if hurts more or is moren difficult to breath no response. He is able to knod yes or no to short questions. He has LIJ dressing intact and site WNL's and is infusing Propofol at 40 mcg/kg/min, NS TKO. He has OG that is infusing vital high protien at 45ml/hr, goal rate and 30 ml/hr water flushes. He had 30 ml residual re-infused. He is NSR in the 90's and systolic 112. He has 16 Fr temp moser draining to gravity with temp 99.0. Possible extubation today.
--- NOTE | 2019-09-16 08:12 | NUR ---
Received report from Billy ROSARIO. Patient resting when entering room and awakens easily to verbal stimuli. She is oriented to self, place, event and family. She is able to communicate her needs. She is very anxious to eat or have coffee. Speech called and is coming to eval her again and are in room now. She is able to reposition self slight in bed and is painful to left hip when moving. She has glasses. phone and purse at bedside. She remains on RA and sats in the upper 90%'s. She has 20ga to right wrist dressing intact and site WNL's and flushed and SL'd. She has 20ga IV to RFA and dressining intact and site WNL's and is infusing NS at 100ml/hr. She also has 20ga IV to LAC dressining intact and site WNL's and is flushed and SL'd. She has 16 Fr moser draining to gravity clear yellow urine. She has ANTOINETTE wrap to left wrist covering cast that was repaired 09/13. She is hypertensive 170 and will give meds post speech eval.
--- NOTE | 2019-09-16 09:47 | NUR ---
Patient placed on Spon. mode 10/5 FiO2 40% and sats 91%. He remains on 40 mcg/kg/min and reduced to 15 mcg/kg/min for weaning and NS TKO. Dr Mendoza in room now working with patient. VSS, See EMR. He is not following commands and or currently answering questions with a knod, but is very agitated. Dr Mendoza is eval for possible extubation.
--- NOTE | 2019-09-16 11:39 | NUR ---
Patient extubated [id number] and tried on 6 L O2 and sats high 80's and placed on BIPA 14/7 40% sats 97%. He was very agressive at first and then has apoligized staing he was scared. Restraints dc'd at 1130. VSS See EMR. Placed on bedpan by request.
--- NOTE | 2019-09-16 13:30 | NUR ---
Patient tolerating BIPAP 14/7 at 30%. and sats low to mid 90%'s. He is very up and down and aks confused , then scared, then apoligetic. Try to talk him through it and then back and forth again. VSS, See EMR. He lifts up mask costantly to talk and does not like to be told no. Dr Mendoza going to order Zyprexa for mood changes. He continues to diuresis. Patient aggressive at times but does not what he is doing and directs shortly after.
--- NOTE | 2019-09-16 15:32 | NUR ---
pt sitting up aggitated asking to go back on bipap. frequent suctioning and coughing up thick white secretions. pt very hard of hearing with his hearing aids in. Will follow up with pulmonology if pt may be needing hospice care soon.
--- NOTE | 2019-09-16 17:13 | NUR ---
Patient continues to be confused and mood changeing. He has been pulling at lines, grabbing tubes and neds to be directed. When not in room he does well, but is difficult with care at times. He tried to pull CL out, but is immediately apoligetic. Started Precedex 0.7 mcg/kg/hr and am sitting in room watching him. He is currently be cooperative. Placed in bilateral soft wrist at 1600 as he continues to try to pull at lines and mask.
--- NOTE | 2019-09-16 20:00 | NUR ---
ASSUMED CARE OF PT AT 1915. REPORT RECEIVED AT BEDSIDE. PT PRESENTS IN BED. WEARING BIPAP. DOES HAVE BILATERAL WRIST RESTRAINTS ON SECONDARY TO RECENT HISTORY AT TRYING TO PULL CENTRAL LINE OUT. WITH ASSESSMENT, AND TURN IN BED. RELEASED ONE SIDE RESTRAINT TO REPOSITION PT. HE IMMEDIATELY REACHES FOR HIS OXYMENTRY PROBE AND PULLS OFF THEN REACHES TOWARDS CENTRAL LINE. PT PLACED BACK IN RESTRAINT. OF NOTE: PT VERY HARD OF HEARING. WILL NOT ALLOW ORAL CARE OR CATHETER CARE AT THIS TIME. WILL REVIEW CHART AND PLAN OF CARE FOR THIS PT.
--- NOTE | 2019-09-16 23:18 | NUR ---
HAVE BEEN DOING Q 2 HOUR TURNS FOR PT TO PROTECT SKIN INTEGRITY. PT VERY RESISTANT AND PUSHES AGAINST CARE. WOULD NOT ALLOW ORAL CARE TO BE DONE. DOES TAKE PREDNISONE DOSE. DID TEACHING ON SAFE SWALLOW WITH CHIN TUCK. PT DOES ALLOW FOR THIS. WAS ABLE TO SWALLOW WITHOUT COUGH.
--- NOTE | 2019-09-17 03:18 | NUR ---
DOUBLE CHECK OF PT'S HEARING AIDES REVEALS THAT THE BATTERIES NEEDED REPLACEMENT. AFTER NEW BATTERIES PLACED PT STATES THAT HE CAN NOW HEAR THIS RN. TEACHING DONE WITH REPEAT OF EARLIER TEACHING TO MAKE SURE PT UNDERSTANDS. PT DOES RESPOND TO QUESTIONS AND ASKS SOME QUESTIONS. PT REORIENTED ON WHERE HE IS WHY HE WAS IN THE HOSPITAL. PT STATES HE WAS UNAWARE THAT HE NEEDED TO BE INTUBATED. TEACHING DONE. WILL CONTINUE TO MONITOR PT.
[2019-09-17 04:15] LABS: BASOPHILS ABSOLUTE AUTO 0.01 K/mm3 (0.00-0.23); BASOPHILS PERCENT AUTO 0 % (0-2); EOSINOPHILS PERCENT AUTO 0 % (0-6); Hematocrit 41.3 % (37.0-53.0); Hemoglobin 12.8 g/dL (13.5-17.5); IMMATURE GRAN ABSOLUTE AUTO 0.07 K/mm3 (0.00-0.10); IMMATURE GRAN PERCENT AUTO 1 % (0-1); LYMPHOCYTES PERCENT AUTO 8 % (21-46); MONOCYTES ABSOLUTE AUTO 1.31 K/mm3 (0.16-1.47); MONOCYTES PERCENT AUTO 9 % (4-13); Mean Corpuscular HGB 30.5 pg (26.0-34.0); Mean Corpuscular Volume 98 fL (80-100); Mean Platelet Volume 10.3 fL (9.1-12.4); NEUTROPHILS ABSOLUTE AUTO 12.26 K/mm3 (1.96-9.15); NEUTROPHILS PERCENT AUTO 83 % (41-73); Platelet Count 223 K/mm3 (150-400); RDW Standard Deviation 50.8 fL (35.1-46.3); White Blood Cell Count 14.75 K/mm3 (4.00-11.30)
[2019-09-17 04:32] LABS: Anion Gap 2 mmol/L (6-16); Blood Urea Nitrogen 35 mg/dL (8-24); Bun/Creatinine Ratio 37.7 (12.0-20.0); CO2, Blood 37 mmol/L (21-32); Calcium, Blood 9.8 mg/dL (8.5-10.1); Chloride, Blood 104 mmol/L (98-108); Creatinine, Blood 0.93 mg/dL (0.60-1.20); Glomerular Filtration Rate >60 (60-); Glucose, Blood 139 mg/dL (70-99); Magnesium, Blood 2.1 mg/dL (1.6-2.4); Phosphorus, Blood 2.6 mg/dL (2.5-4.9); Sodium, Blood 143 mmol/L (136-145)
--- NOTE | 2019-09-17 05:32 | NUR ---
DID GIVE PT A BREAK FROM WRIST RESTRAINTS WITH THE RN PRESENT WHILE DRAWING LABS. PT DEMONSTRATES CONFUSION, AND VOICES VISUAL HALLUCINATIONS. PLACED WRIST RESTRAINTS BACK ON PT WHICH MADE HIM VERY ANGRY. ASSISTING RN FOR RESTRAINTS THEN BECOMES HIS FOCUS OF AGITATION. WHEN MARLENE SALCIDO MOVES NEAR ROOM HE YELLS, "EVIL, EVIL" AND "I HOPE YOU HAVE A BAD LIFE". THIS IS THE ONLY RN THAT HE YELLS AT. OF NOTE: HAVE DECREASED PT'S PRECEDEX DOWN TO 0.5 MCG'S/KG/HOUR. PT HAS BEEN ABLE TO SWALLOW SOME WATER WITHOUT COUGH. PT TAKES SHORT PERIOD BREAK FROM BIPAP MASK. PLACED PT ON OXYIMIZER AT 8 L/M. PT MAINTAINS >90 PERCENT SATURATION. PT DOES EXPECTORATE SMALL AMOUNT OF FERNANDEZ THICK SPUTUM. WILL CONTINUE TO MONITOR PT, AND WILL REPORT OFF TO ONCOMING RN.
--- NOTE | 2019-09-17 18:46 | NUR ---
SHIFT SUMMARY TODAY PT HAS BEEN ALERT, ORIENTED TO PERSON/PLACE, COOPERATIVE AND FOLLOWS COMMANDS. RESTRAINTS WERE REMOVED THIS MORNING AND PT HAS REMAINED OUT OF THEM ALL DAY. PRECEDEX HAS BEEN TIRATED DOWN AND IS CURRENTLY INFUSING AT 0.2. PT HAS MOSTLY BEEN ON OXIMIZIER TODAY AT 6L. ATTEMPTED TO TITRATE DOWN, HOWEVER PT WOULD EVENTUALLY DROP HIS SATS AND NEED EITHER AN INCREASE IN O2 OR A RECOVERY PERIOD ON BIPAP. OTHER VITALS HAVE REMAINED STABLE, MONITOR HAS SHOWN PT TO BE IN SINUS RHYTHM. PHYSICAL THERAPY WAS ABLE TO HELP PT UP TO CHAIR TODAY AND PT HAS WANTED TO REMAIN IN CHAIR THE WHOLE AFTERNOON. PT HAS BEEN VERY ANXIOUS TODAY, WITH CONSTANT CALLING OUT FOR "NURSE" AND WANTING TO HAVE SOMEONE AT THE BEDSIDE AT ALL TIMES.
--- NOTE | 2019-09-17 19:57 | NUR ---
Pt up in chair this afternoon, more alert has batteries in his hearing aids so hearing slightly better. Pt distraught that he was so sick and apologetic for lashing out. Theraputic visit with pt and advised him he is safe here in our care. Pt States hearing is getting worse and harder for him to interact. He is labored when he speaks and anexiety increases. He denies headache or trouble swallowing he has mild general pain. No nausea he is tolerating po intake. states his arms are always sore and itchy. From his skin condition. Theraputic time with pt combed his hair and did some skin care. pt was teraful and distraught when questioned about his living situation. He states he has been to his current for approximately 8 years. He has children he has not seen in years and does not know where they are. He states his has and ex that she has remarried more than once. He has recntly contacted her and pt states he is here and that she is planning on leaving him. He is concerned they will take some of his things. He is fixated on his future needs and he knows he needs a different living situation. Offered to speak with care managers and possible [employer] to assist him with a plan. He was very tearfull. pt sturggled to hear and track conversation but was able. He did repeat himself. Spoke with care managers on contacting family to confirm his needs and possibly [employer] for follow up. pt PPS score is 30% . Will discuss with pulmonolgy prognosis and goals and when hospice may be necessary.
[2019-09-18 03:46] LABS: BASOPHILS ABSOLUTE AUTO 0.01 K/mm3 (0.00-0.23); BASOPHILS PERCENT AUTO 0 % (0-2); EOSINOPHILS ABSOLUTE AUTO 0.02 K/mm3 (0.00-0.68); EOSINOPHILS PERCENT AUTO 0 % (0-6); Hematocrit 40.4 % (37.0-53.0); IMMATURE GRAN ABSOLUTE AUTO 0.05 K/mm3 (0.00-0.10); IMMATURE GRAN PERCENT AUTO 0 % (0-1); LYMPHOCYTES ABSOLUTE AUTO 0.75 K/mm3 (0.84-5.20); LYMPHOCYTES PERCENT AUTO 6 % (21-46); MONOCYTES ABSOLUTE AUTO 1.19 K/mm3 (0.16-1.47); MONOCYTES PERCENT AUTO 9 % (4-13); Mean Corpuscular HGB 29.8 pg (26.0-34.0); Mean Corpuscular HGB Conc 29.7 g/dL (31.5-36.5); Mean Corpuscular Volume 100 fL (80-100); Mean Platelet Volume 10.1 fL (9.1-12.4); NEUTROPHILS ABSOLUTE AUTO 11.56 K/mm3 (1.96-9.15); NEUTROPHILS PERCENT AUTO 85 % (41-73); Platelet Count 207 K/mm3 (150-400); RDW Coefficient Variation 13.5 % (11.7-14.2); RDW Standard Deviation 50.1 fL (35.1-46.3); Red Blood Cell Count 4.03 M/mm3 (4.30-5.90); White Blood Cell Count 13.58 K/mm3 (4.00-11.30)
[2019-09-18 04:01] LABS: Anion Gap 5 mmol/L (6-16); Blood Urea Nitrogen 45 mg/dL (8-24); Bun/Creatinine Ratio 46.4 (12.0-20.0); CO2, Blood 36 mmol/L (21-32); Calcium, Blood 9.5 mg/dL (8.5-10.1); Chloride, Blood 103 mmol/L (98-108); Creatinine, Blood 0.97 mg/dL (0.60-1.20); Glomerular Filtration Rate >60 (60-); Glucose, Blood 122 mg/dL (70-99); Magnesium, Blood 2.2 mg/dL (1.6-2.4); Phosphorus, Blood 3.4 mg/dL (2.5-4.9); Potassium, Blood 4.2 mmol/L (3.5-5.5); Sodium, Blood 144 mmol/L (136-145)
--- NOTE | 2019-09-18 06:52 | NUR ---
SHIFT SUMMARY PATIENT SLEPT MOST OF THE NIGHT. WAS VERY CALM, PLEASANT AT THE BEGIN OF SHIFT, THEN AFTER BEING WOKEN UP ~ 05:30 WAS VERY MEAN, AGGRESSIVE, SAID "YOU STOLE MY " AND TAKING SHORT SWINGS AT ME. GIVEN FEW MINUTES TO COOL DOWN, HAD NO RECOLLECTION OF PREVIOUS CONFRONTATION. MAINTAINED ON BIPAP OVERNIGHT. ASKED FOR ADDITIONAL SLEEP AID ~ 23:30, INCREASED PRECEDEX SLIGHTLY, HAD ALREADY GIVEN CLONOPIN. ASSESSMENT IS CHARTED. VSS. NO C/O PAIN. WILL CONTINUE TO MONITOR.
--- NOTE | 2019-09-18 07:15 | NUR ---
BEGINNING OF SHIFT Assumed care of pt at 0700. Bedside report received from Tna ROSARIO. Pt alert and oriented to self and place. Able to state correct month and year. Pt has bilateral hearing aids but is severely hard of hearing. Pt follows directions, verbalizes needs, and answers questions appropriately. Pt is forgetful at times. Pt has periods of confusion, reporting that the offgoing nurse, Tan, was "in love with my ". Pt verbalizes to almost every staff member that goes into his room that "Tan stole my ". Pt otherwise has a good memory, remembering this RN's name and remembering directions given. Pt utilizes call light inappropriately, often calling just when he wants someone to conversate with him. Education provided, boundaries set, pt verbalizes understanding. Pt on 6 LPM oxymizer. Per report, pt wears 4 LPM NC continuously at home. Pt has loose, productive cough with copious amounts of sputum. Pt is SR per monitor. Pt has central line to left IJ, plan for this access to be removed today. Pt has moser catheter in place for strict measurement of I&O. Bed in lowest position. Call light in reach. Pt denies need at this time.
--- NOTE | 2019-09-18 09:30 | NUR ---
DR KAT IN TO SEE PT Precedex off. Per Dr Kat, plan to keep precedex off, potential for pt to transfer out of ICU later today.
--- NOTE | 2019-09-18 12:00 | NUR ---
UPDATE Pt tolerating meals well. Pleasant and cooperative with care. Utilizing call light appropriately.
--- NOTE | 2019-09-18 14:00 | NUR ---
PT UP IN CHAIR Pt taken to commode with physical therapy and this RN. Pt then taken to chair. Walker and gait belt used. Pt in recliner at this time. States desire to sit up for a while.
--- NOTE | 2019-09-18 18:30 | NUR ---
SUMMARY/PCU TRANSFER No acute changes to shift assessment. Pt remains in recliner. Pt transferred to PCU 1 accompanied by this RN and PCT Debora. Chart and belongings transferred with patient. Pt remains on 6 LPM oxymizer. Telephone report given to Lida ROSARIO.
--- NOTE | 2019-09-18 18:52 | NUR ---
SHIFT SUMMARY ICU TRANSFER ABOUT 183. PT A&OX3, VSS, TELE ST @ 110 BPM. KOOTENAI, JOSSELYN HEARING AIDS IN, IN RECLINER. ORAL PO, DENIES N&V. 6 L OXIMIZER, ENCOURAGED DEEP BREATHING, AND RESTING. DECKER PATENT AND DRAINING CLEAR YELLOW URINE, STAT LOCK ON, OFF FLOOR. REPORT PROVIDED TO NELLY ROSARIO.
[2019-09-19 03:47] LABS: BASOPHILS ABSOLUTE AUTO 0.01 K/mm3 (0.00-0.23); BASOPHILS PERCENT AUTO 0 % (0-2); EOSINOPHILS ABSOLUTE AUTO 0.01 K/mm3 (0.00-0.68); EOSINOPHILS PERCENT AUTO 0 % (0-6); Hematocrit 38.5 % (37.0-53.0); Hemoglobin 11.8 g/dL (13.5-17.5); IMMATURE GRAN ABSOLUTE AUTO 0.08 K/mm3 (0.00-0.10); IMMATURE GRAN PERCENT AUTO 1 % (0-1); LYMPHOCYTES ABSOLUTE AUTO 0.58 K/mm3 (0.84-5.20); LYMPHOCYTES PERCENT AUTO 4 % (21-46); MONOCYTES ABSOLUTE AUTO 0.79 K/mm3 (0.16-1.47); MONOCYTES PERCENT AUTO 6 % (4-13); Mean Corpuscular HGB 30.3 pg (26.0-34.0); Mean Corpuscular HGB Conc 30.6 g/dL (31.5-36.5); Mean Corpuscular Volume 99 fL (80-100); Mean Platelet Volume 10.1 fL (9.1-12.4); NEUTROPHILS ABSOLUTE AUTO 12.84 K/mm3 (1.96-9.15); NEUTROPHILS PERCENT AUTO 90 % (41-73); Platelet Count 203 K/mm3 (150-400); RDW Coefficient Variation 13.3 % (11.7-14.2); RDW Standard Deviation 48.6 fL (35.1-46.3); Red Blood Cell Count 3.89 M/mm3 (4.30-5.90); White Blood Cell Count 14.31 K/mm3 (4.00-11.30)
[2019-09-19 04:11] LABS: Anion Gap 4 mmol/L (6-16); Blood Urea Nitrogen 39 mg/dL (8-24); Bun/Creatinine Ratio 45.8 (12.0-20.0); CO2, Blood 35 mmol/L (21-32); Calcium, Blood 9.5 mg/dL (8.5-10.1); Chloride, Blood 102 mmol/L (98-108); Creatinine, Blood 0.85 mg/dL (0.60-1.20); Glomerular Filtration Rate >60 (60-); Glucose, Blood 142 mg/dL (70-99); Magnesium, Blood 2.2 mg/dL (1.6-2.4); Phosphorus, Blood 2.7 mg/dL (2.5-4.9); Potassium, Blood 4.5 mmol/L (3.5-5.5); Sodium, Blood 141 mmol/L (136-145)
--- NOTE | 2019-09-19 05:20 | NUR ---
SHIFT SUMMARY PT ALERT & ORIENTED TO SELF AND SURROUNDINGS; VERT TALKATIVE TO STAFF AND TELLS STORIES THAT ARE CONFUSED W/OTHERS; PULLS TELE OFF AND STATES HE DOES NOT KNOW WHAT IT IS FOR AFTER REPEAT EDUCATION; CALLS OUT FREQUENTLY; VSS; DENIES CHEST PAIN; O2 SATS >93 ON 6L OXYMIZER; SKIN DRY AND SCALY; DECKER PATENT & DRAINING; NO EDEMA NOTED; CALL LIGHT IN REACH; BED ALARM ON W/ BED IN LOWEST POSITION; WILL CONTINUE TO MONITOR CLOSELY UNTIL HAND OFF TO DAY SHIFT RN.
--- NOTE | 2019-09-19 18:19 | NUR ---
SHIFT SUMMARY PT HAS BEEN AWAKE, ALERT & ORIENTED X3 THROUGH THE DAY. HE HAS BEEN SITTING UP IN THE CHAIR & ALSO WORKS WITH THERAPY. VSS, O2 VIA OXYMIZER @ 5L, O2 REMAINS >93%. PT IS TOLERATING PO INTAKE. JERONIMO IS PATENT, OUTPUT WNL. NO ACUTE CHANGES NOTED. WCTM & REPORT TO MARIKA ROSARIO.
[2019-09-20 04:08] LABS: BASOPHILS ABSOLUTE AUTO 0.01 K/mm3 (0.00-0.23); BASOPHILS PERCENT AUTO 0 % (0-2); EOSINOPHILS ABSOLUTE AUTO 0.29 K/mm3 (0.00-0.68); EOSINOPHILS PERCENT AUTO 2 % (0-6); Hematocrit 42.9 % (37.0-53.0); Hemoglobin 12.7 g/dL (13.5-17.5); IMMATURE GRAN ABSOLUTE AUTO 0.07 K/mm3 (0.00-0.10); IMMATURE GRAN PERCENT AUTO 0 % (0-1); LYMPHOCYTES ABSOLUTE AUTO 1.17 K/mm3 (0.84-5.20); LYMPHOCYTES PERCENT AUTO 7 % (21-46); MONOCYTES ABSOLUTE AUTO 1.51 K/mm3 (0.16-1.47); MONOCYTES PERCENT AUTO 9 % (4-13); Mean Corpuscular HGB 29.5 pg (26.0-34.0); Mean Corpuscular HGB Conc 29.6 g/dL (31.5-36.5); Mean Corpuscular Volume 100 fL (80-100); Mean Platelet Volume 9.9 fL (9.1-12.4); NEUTROPHILS ABSOLUTE AUTO 13.98 K/mm3 (1.96-9.15); NEUTROPHILS PERCENT AUTO 82 % (41-73); Platelet Count 241 K/mm3 (150-400); RDW Coefficient Variation 13.1 % (11.7-14.2); RDW Standard Deviation 48.9 fL (35.1-46.3); White Blood Cell Count 17.03 K/mm3 (4.00-11.30)
[2019-09-20 04:22] LABS: Anion Gap 4 mmol/L (6-16); Blood Urea Nitrogen 34 mg/dL (8-24); Bun/Creatinine Ratio 39.9 (12.0-20.0); CO2, Blood 36 mmol/L (21-32); Chloride, Blood 102 mmol/L (98-108); Creatinine, Blood 0.85 mg/dL (0.60-1.20); Glomerular Filtration Rate >60 (60-); Glucose, Blood 97 mg/dL (70-99); Potassium, Blood 4.3 mmol/L (3.5-5.5); Sodium, Blood 142 mmol/L (136-145)
--- NOTE | 2019-09-20 06:51 | NUR ---
SHIFT SUMMARY PT ALERT & ORIENTED TO SELF; CONFUSING HOSPITAL STAFF W/ EVENT IN PERSONAL LIFE; VSS; DENIES CHEST PAIN; O2 SATS > 93 ON 5L NC; PT USED BIPAP FOR SLEEPING; SLEPT A COUPLE OF HOURS; C/O LEG CRAMPS AT TIMES AND ABRUBTLY STANDS; DECKER PATENT & DRAINING; PT TRANSFERED TO CHAIR THIS AM; CURRENTLY SITTING IN CHAIR DRINKING COFFEE AND WATCHING TV; TAB ALARM ON; CALL LIGHT IN REACH; WILL CONTINUE TO MONITOR UNTIL HAND OFF TO DAY SHIFT RN.
--- NOTE | 2019-09-20 06:52 | NUR ---
Pt in chair. Upset he was woke to have blood drawn at 0430. Says the dr doesn't need "that", that early. Also says he needs to sign out so he can be signed back in to live here. Says he was told all "these things" are to come out. Refering too his IVs. I assured him that when they need to come out the RN will come take them out.
--- NOTE | 2019-09-20 18:21 | NUR ---
a+o to self, place and date, very concerned with home situation, [place] and anxious, no IV, 4L vai [place] states that is home level, removed nurse ehsan in [facility] stated she would write order to dc tele, will continue to monitor and treat until share bsr with noc shift and pt
--- NOTE | 2019-09-20 18:23 | NUR ---
TRANSFER PT TRANSFERRED TO MEDICAL FLOOR WITH NO TELE. PT IS A&O X3, VS, O2 VIA NC @ 5L, RESP UNLABORED, REPORT GIVEN TO HOWARD ROSARIO, PT'S BELONGINGS WERE SENT WITH HIM.
--- NOTE | 2019-09-20 18:27 | NUR ---
nurse from [facility] called and said requested pt to be sent home via medical transport, also promised to send up posessions
[2019-09-21 05:36] LABS: BASOPHILS ABSOLUTE AUTO 0.01 K/mm3 (0.00-0.23); BASOPHILS PERCENT AUTO 0 % (0-2); EOSINOPHILS ABSOLUTE AUTO 0.05 K/mm3 (0.00-0.68); EOSINOPHILS PERCENT AUTO 0 % (0-6); Hematocrit 42.4 % (37.0-53.0); Hemoglobin 12.6 g/dL (13.5-17.5); IMMATURE GRAN ABSOLUTE AUTO 0.09 K/mm3 (0.00-0.10); IMMATURE GRAN PERCENT AUTO 1 % (0-1); LYMPHOCYTES PERCENT AUTO 5 % (21-46); MONOCYTES ABSOLUTE AUTO 0.94 K/mm3 (0.16-1.47); MONOCYTES PERCENT AUTO 5 % (4-13); Mean Corpuscular HGB 29.4 pg (26.0-34.0); Mean Corpuscular HGB Conc 29.7 g/dL (31.5-36.5); Mean Corpuscular Volume 99 fL (80-100); Mean Platelet Volume 10.3 fL (9.1-12.4); NEUTROPHILS ABSOLUTE AUTO 16.98 K/mm3 (1.96-9.15); NEUTROPHILS PERCENT AUTO 89 % (41-73); Platelet Count 263 K/mm3 (150-400); RDW Standard Deviation 47.5 fL (35.1-46.3); Red Blood Cell Count 4.28 M/mm3 (4.30-5.90); White Blood Cell Count 19.07 K/mm3 (4.00-11.30)
--- NOTE | 2019-09-21 05:53 | NUR ---
SHIFT SUMMARY: VSS. AFEB. AAOX2. FORGETS HE IS IN THE HOSPITAL. PLEASANT AND REDIRECTS WELL. VERY FORGETFUL. SELF T/F'S SETTING ALARMS OFF. ENCOURAGED PT TO USE CALL BUTTON. CONT OF URINE AND VOIDING SEVERAL TIMES TONIGHT. 02 CONT VIA NC DURING THE DAY AND 02 BLEED INTO BIPAP AT HS. PT WORE BIPAP THE MAJORITY OF THE NIGHT. NO RESP DISTRESS. EXERTIONAL DYSPNEA. AMB IN ROOM W/FWW. WBC INCREASED THIS AM. PT RECEIVING PO ABT ORDERED. NO CURRENT IV ACCESS. PT EXPRESSING AXIETY THIS MORNING, BELIEVES HIS SPOUSE IS LEAVING HIM WHILE HE IS IN THE HOSPITAL. ATTEMPTED TO REDIRECT BUT PT IS PERSEVERATING AT THIS TIME. NO ACUTE CHANGES OVERNIGHT. WILL CONT TO MONITOR.
--- NOTE | 2019-09-21 17:28 | NUR ---
SUMMARY PT IS A/O X2-3, FORGETFUL, NINILCHIK w BILAT HEARING AIDES. DX PNEUMONIA, RECIEVING ORAL ANTIBX. WBC 19, AFEBRILE. HE STATE NO SOB, LS COARSE/DECREASED, BIOX 97% 4L HOME DOSE/CAREGIVER. AFFECT HAS BEEN GENERALLY PLEASANT, VERY TALKATIVE HOWEVER @ X'S HE HAS BEEN EMOTIONAL/LABILE R/T CURRENT SOCIAL SITUATION/LIVING ARRANGEMENTS. ARIEL HIS S/O CALLED TODAY, ORNAMENT MAKER HAND NOTIFIED, WILL INVESTIGATE SOCIAL CIRCUMSTANCES. HE IS UP IND IN ROOM w FWW, GAIT HAS BEEN STEADY.
--- NOTE | 2019-09-22 06:41 | NUR ---
SHIFT SUMMARY NO ACUTE CHANGES THIS SHIFT. AOX4. ANSWERS QUESTIONS APPROPRIATELY DURING ASSESSMENT. IS FORGETFUL @TIMES. VSS. DENIES PAIN, N/V OR DYSPNEA. CONT BIOX >90% ON 5L O2 W/NC & CPAP @HS. E/U RESPIRATIONS. LUNGS SOUND DIM T/O. PLEASENT & COOPERATIVE W/CARE. CONTINENT OF URINE & USES URINAL. CALL LIGHT IN REACH.
[2019-09-22 10:34] LABS: Anion Gap 0 mmol/L (6-16); BASOPHILS ABSOLUTE AUTO 0.01 K/mm3 (0.00-0.23); BASOPHILS PERCENT AUTO 0 % (0-2); Blood Urea Nitrogen 33 mg/dL (8-24); CO2, Blood 39 mmol/L (21-32); Chloride, Blood 97 mmol/L (98-108); Creatinine, Blood 0.89 mg/dL (0.60-1.20); EOSINOPHILS ABSOLUTE AUTO 0.03 K/mm3 (0.00-0.68); EOSINOPHILS PERCENT AUTO 0 % (0-6); Glomerular Filtration Rate >60 (60-); Glucose, Blood 112 mg/dL (70-99); Hemoglobin 13.2 g/dL (13.5-17.5); IMMATURE GRAN ABSOLUTE AUTO 0.07 K/mm3 (0.00-0.10); IMMATURE GRAN PERCENT AUTO 1 % (0-1); LYMPHOCYTES ABSOLUTE AUTO 1.21 K/mm3 (0.84-5.20); LYMPHOCYTES PERCENT AUTO 8 % (21-46); MONOCYTES ABSOLUTE AUTO 1.28 K/mm3 (0.16-1.47); MONOCYTES PERCENT AUTO 8 % (4-13); Mean Corpuscular HGB 29.9 pg (26.0-34.0); Mean Corpuscular HGB Conc 30.7 g/dL (31.5-36.5); Mean Corpuscular Volume 98 fL (80-100); Mean Platelet Volume 10.1 fL (9.1-12.4); NEUTROPHILS ABSOLUTE AUTO 12.76 K/mm3 (1.96-9.15); NEUTROPHILS PERCENT AUTO 83 % (41-73); Platelet Count 264 K/mm3 (150-400); Potassium, Blood 4.4 mmol/L (3.5-5.5); RDW Coefficient Variation 12.9 % (11.7-14.2); RDW Standard Deviation 46.1 fL (35.1-46.3); Red Blood Cell Count 4.41 M/mm3 (4.30-5.90); Sodium, Blood 136 mmol/L (136-145); White Blood Cell Count 15.36 K/mm3 (4.00-11.30)
[2019-09-22] MEDS ORDERED: METO25ER PO (12:51)
[2019-09-22] MEDS ORDERED: CEFP200 PO (12:51)
--- NOTE | 2019-09-22 13:21 | NUR ---
DISCHARGE DR LAINEZ IN TO SEE PT THIS AM. REVIEWED TX'S. REVIEWED HOME SITUATION w PT. SHE STATE HE MAY RETURN HOME TODAY IF HE FEELS READY. PT STATE JEWEL, STATE READY FOR D/C HOME. HE DOES NOT STATE ANY HESITATION R/T LIVING SITUATION @ THIS TIME. ARIEL, HIS /CAREGIVER NOTIFIED. D/C INSTRUCT REVIEWED w HER VIA PHONE. SALES TRAINEE ARRANGE TRANSPORTATION HOME VIA W/C VAN, MAKE ARRANGEMENTS FOR INCREASE IN OXYGEN NEEDS FOLLOWING HOME O2 EVAL. PT ASSISTED TO DRESS/GATHER BELONGINGS. HE IS PLEASANT/APPRECIATIVE. D/C INSTRUCT REVIEWED. WAITING TRANSPORTATION HOME APPROX 3PM/UNIFORM FORCE CAPTAIN.
--- NOTE | 2019-09-22 17:38 | NUR ---
DRY CANS BACK TENDERCHECKMAN W/C VAN P/U WON'T BE AVAIL UNTIL [phone]. OPERATING SYSTEMS PROGRAMMER, PT & CAREGIVER NOTIFIED. PORTABLE O2 DELIVERED.
--- NOTE | 2019-09-22 18:38 | NUR ---
STEPHEN W/Avani DUTTA ARRIVE FOR TRANSPORT HOME. PT IS PLEASANT/APPRECIATIVE.
== END 2019-09-22 18:28 | disposition home or self-care (01) | DRG 208 ==
LOC: ER 22:19 → ICUW 09-14 00:37 → ER 09-14 01:06 → ICUW 09-14 01:06 → PCU 09-18 18:28 → MEDS 09-20 17:15 → ENPENDDIS 09-22 16:02 → MEDS 09-22 18:28
PROVIDERS: Emergency Medicine; Internal Medicine; Internal Medicine Critical Care Medicine; ADMIT Internal Medicine
PROC: 5A1945Z Respiratory Ventilation, 24-96 Consecutive Hours (ICD-10-PCS; principal; 2019-09-14)
PROC: 02HV33Z Insertion of Infusion Device into Superior Vena Cava, Percutaneous Approach (ICD-10-PCS; 2019-09-14)
DX: J18.9 Pneumonia, unspecified organism (principal); J96.21 Acute and chronic respiratory failure with hypoxia; I50.33 Acute on chronic diastolic (congestive) heart failure; J96.22 Acute and chronic respiratory failure with hypercapnia; J44.1 Chronic obstructive pulmonary disease with (acute) exacerbation; Z99.81 Dependence on supplemental oxygen; Z87.891 Personal history of nicotine dependence; I11.0 Hypertensive heart disease with heart failure; N40.0 Benign prostatic hyperplasia without lower urinary tract symptoms; G31.84 Mild cognitive impairment of uncertain or unknown etiology; E78.5 Hyperlipidemia, unspecified; F41.8 Other specified anxiety disorders; K21.9 Gastro-esophageal reflux disease without esophagitis; G47.00 Insomnia, unspecified; E87.5 Hyperkalemia; J43.9 Emphysema, unspecified; E11.9 Type 2 diabetes mellitus without complications; I27.20 Pulmonary hypertension, unspecified
CPT/HCPCS: 31720; 36415; 36600; 51702; 70450; 71045; 71046; 72125; 80048; 80053; 80202; 82803; 82947; 83605; 83735; 83880; 84100; 84484; 85025; 85610; 87040; 87070; 87205; 93005; 93010; 93306; 94002; 94003; 94640; 94660; 94761; 94762; 96365-59; 96367; 96367-59; 96375-59; 97110; 97112; 97162; 97166; 97530; 97535; 99291-25; 99292; A9270-GY; C1751; C9113; J0456; J0610; J0692; J0696; J1650; J1815; J1940; J1956; J2060; J2250; J2405; J2704; J2930; J3370; J7030; J7050; J7060; J7512; P9046